=== PATIENT | female | born 1945 | race Caucasian/White ===

== ENCOUNTER 2022-10-10 13:18 | Inpatient (IN) ==
[2022-10-10] MEDS ORDERED: SODIUM CHLORIDE 0.9% 500 ML IV SCH (14:00)
[2022-10-10] MEDS ORDERED: SODIUM CHLORIDE 0.9% 1000ML 1,000 ML IV SCH (14:00)
[2022-10-10 14:31] LABS: Basophils # (auto) 0.07 K/uL (0-0.2); Basophils % (auto) 0.6 %; Eosinophils # (auto) 0.04 K/uL (0-0.50); Eosinophils % (auto) 0.3 %; Hematocrit (blood only) 47.4 % (34.1-44.9); Hemoglobin 16.1 g/dl (12.0-16.0); Immature Granulocytes # (auto) 0.03 K/uL (0.00-0.02); Immature Granulocytes % (auto) 0.2 %; Lymphocytes # (auto) 1.47 K/uL (1.2-3.4); Lymphocytes % (auto) 12.1 %; Mean Corpuscular Hemoglobin 30.3 pg (25.0-34.0); Mean Corpuscular Volume 89.1 fL (80.0-100.0); Mean Platelet Volume 9.6 fL (9.4-12.3); Monocytes % (auto) 5.8 %; Neutrophils # (auto) 9.79 K/uL (1.4-6.5); Platelet Count 238 K/uL (130-400); RDW Coefficient of Variation 13.2 % (11.5-14.5); RDW Standard Deviation 43.6 fL (36.4-46.3); Red Blood Count 5.32 M/uL (3.93-5.22)
[2022-10-10] MEDS ORDERED: LORazepam 1 MG/1 ML SYR IV STA ×2 (14:53→16:45)
[2022-10-10 15:14] LABS: Albumin Globulin Ratio 1.4 (0.9-2); Albumin Level 4.4 gm/dl (3.4-5.0); Bilirubin,Total 0.7 mg/dl (0.2-1.0); Calcium 9.4 mg/dl (8.5-10.1); Est GFR (African American) 82.3 ml/min; Globulin 3.1 gm/dl (2.5-4.0); Magnesium 2.2 mg/dl (1.7-2.4); Potassium 3.6 mmol/L (3.5-5.1); Total Protein 7.5 gm/dl (6.0-8.3)
[2022-10-10 15:17] LABS: Troponin I High Sensitivity 8.8 pg/ml (0-14)
--- NOTE | 2022-10-10 15:18 | CT Scan Report ---
HEAD CT NONCONTRAST CT DOSE: 537.48 mGy.cm HISTORY: confusion TECHNIQUE: Multiaxial CT images of the head were performed without the use of intravenous contrast. A utomated exposure control was utilized for this study. A dose lowering technique was utilized adheri ng to the principles of ALARA. Comparison: None. Findings: The paranasal sinuses and mastoid air cells are clear. The calvarium and skull base are int act. The ventricles and sulci are within normal limits. There is no mass, hematoma, midline shift, or acute infarct. Impression: No acute intracranial abnormality. ACT 112: Negative or not required by law. Electronically signed by: Emigdio Bledsoe M.D. 10/10/2022 3:16 PM
--- NOTE | 2022-10-10 15:26 | XRay Report ---
XR chest 1V portable HISTORY: confusion COMPARISON: None. FINDINGS: The lungs are clear. Cardiac silhouette is normal in size. No pleural effusions. No pneumot horax. Moderate hiatus hernia. Calcifications within the aortic knob. IMPRESSION: No acute process. ACT 112: Negative or not required by law. Electronically signed by: Emigdio Bledsoe M.D. 10/10/2022 3:24 PM
[2022-10-10 16:26] LABS: Appearance Urine Clear (Clear); Bacteria Urine Automated 2+ (Negative); Bilirubin Urine Negative (Negative); Blood Urine Negative (Negative); Cast Urine Automated 0 /lpf (0-5); Color Urine Yellow; Epithelial Cell Urine Auto 0-5 /lpf (0-5); Glucose Urine UA Negative (Negative); Ketones Urine Negative (Negative); Leukocyte Esterase Urine Negative (Negative); Nitrite Urine Positive (Negative); Protein Urine Negative (Negative); RBC Urine Automated 0-4 /hpf (0-4); Specific Gravity Urine 1.003 (1.000-1.030); Urobilinogen Urine Negative (Negative)
[2022-10-10] MEDS ORDERED: cefTRIAXone SODIUM 2,000 MG/70 ML BAG IV STA (16:35)
--- NOTE | 2022-10-10 16:50 | History & Physical Report ---
Date of Service October 10, 2022 Assessment & Plan (1) Altered mental state: Plan: Altered mental status Presumed dementia UTI could be contributing as well CT head:No acute process. No focal deficits on exam Urine toxicology requested Urinary tract infection Empirically started on Rocephin Blood, urine cultures obtained No signs of sepsis IV fluids Suicidal Ideation One-on-one precautions Psychiatry consulted Zyprexa as needed for agitation DVT Px: Lovenox SQ Code Status Full Code History of Present Illness Chief Complaint: Change in Mental Status Primary Care Provider: NO PCP Patient is a 77-year-old female with no significant known medical history presents with history of altered mental status. Patient is currently confused and unable to provide much history. Most of the history is obtained from ER staff, patient's significant other at bedside. Old records currently unavailable. Apparently, patient's significant other went to [employer] this morning and when he returned, he noted that patient left the house. When called, she informed that she was driving to her son's place in [place]. Patient's significant other informed that had a vehicle linux support engineer that he has been using to track her as she been having memory issues since last 1 and half years. State police were informed and patient was found walking on highway in [place]. Currently patient is oriented to person but otherwise disoriented. She has been having hallucinations and her mental status deteriorated especially over the past 5 days. She also was noted to have made statements suggestive of being suicidal. Per significant other, about 2 to 3 days ago patient stated " if I know how to use again, I would kill myself". Patient's son was contacted and he was unaware that her mother was traveling to visit him. Patient has been canceling her neurology appointments as per family, as she believes she has no issues. Blood work suggestive of UTI. Review of systems could not be obtained currently Allergies Allergy/AdvReac Type Severity Reaction Status Date / Time Unable to Assess Allergy Unverified 10/10/22 18:06 Home Medications Medication Instructions Recorded Confirmed Type Unobtainable 10/10/22 10/10/22 History Past Med/Surg History Social History Smoking Status: Unknown if ever smoked Preferred Language: Estonian Feels Safe at Home: Yes Review of Systems Review of Systems: Unobtainable due to cognitive status Physical Exam Physical Exam: Physical Exam: Vitals signs as noted above General Appearance:Moderately built and nourished, no apparent distress Head: normocephalic, Atraumatic Eyes: normal inspection, EOMI Neck: supple, Trachea midline Respiratory/Chest: Normal breath sounds, CTA, No accessory muscle use Cardiovascular: S1, S2, No murmur Abdomen/GI:Soft, Non tender, Bowel sounds present Extremities/Musculoskelatal:normal inspection, no edema Neurologic/Psych:AAOX1, grossly no focal neurological deficits, confused Skin: normal color, warm Results & Data Results & Data ([facility]) Vital Signs (Past 12 Hours) Vital Signs Temp Pulse Resp BP Pulse Ox O2 Del Method 10/10/22 14:36 88 18 98 Room Air 10/10/22 13:18 36.7 C 88 18 168/81 H 98 Room Air Laboratory Results Short CBC 10/10/22 Range/Units 14:18 WBC 12.10 H (4.8-10.8) K/ul Hgb 16.1 H (12.0-16.0) g/dl Hct 47.4 H (34.1-44.9) % Plt Count 238 (130-400) K/uL BMP 10/10/22 14:15 Sodium 139 Potassium 3.6 Chloride 104 Carbon Dioxide 28 BUN 17 Creatinine 0.81 Glucose 106 H Calcium 9.4 Liver Function 10/10/22 Range/Units 14:15 Total Bilirubin 0.7 (0.2-1.0) mg/dl AST 24 (13-39) U/L ALT 19 (7-52) U/L Alkaline Phosphatase 83 (34-104) U/L Albumin 4.4 (3.4-5.0) gm/dl Urine 10/10/22 Range/Units 16:03 Urine Color Yellow Urine Appearance Clear (Clear) Urine pH 7.0 (4.5-7.5) Ur Specific [place] 1.003 (1.000-1.030) Urine Protein Negative (Negative) Urine Glucose (UA) Negative (Negative) Diagnostic Findings CT Head:No acute intracranial abnormality. CXR:No acute process. ECG Additional Comments: EKG: Sinus rhythm with PVCs, QTC 460. Nonspecific ST-T wave changes
[2022-10-10] MEDS ORDERED: haloperidoL 1 MG TAB PO STA (17:18)
--- NOTE | 2022-10-10 18:17 | Emergency Department Note ---
Impression & Plan Altered mental status, Leukocytosis, Acute UTI (urinary tract infection), Suicidal ideation ED Provider Note INFORMANT: Patient, [id number] Didi, son Micah Johnson, significant other Jean Marie ED PROVIDER(S): Adam Orellana MD CHIEF COMPLAINT: Confusion PLAN: Disposition: Admitted Condition: Good Outpatient prescription management: none Referral: None MEDICAL DECISION MAKING: Patient presented because of confusion. She is clearly having difficulty with details and was difficult to redirect at times. The patient underwent an evaluation. She was oriented to person. She was given a dose of IV Ativan to help with the agitation. She made some statements that nursing documented about suicidality. She underwent head CT and chest x-ray which were unremarkable. There was a T wave version noted on V3 ECG however the patient denied any chest pain. There was a poor baseline and no prior for comparison. She had a mild leukocytosis. The patient did not understand her state and with her confusion and history I suspect that there is underlying dementia. The family and I discussed this and unfortunately she never had a formal evaluation as she would always cancel the appointments. Her urinalysis was obtained and did reveal findings concerning for infection. This could be explaining the exacerbation over the last several days however she is clearly not safe to be at home given her statements but also the leaving the house and [place]. The patient was given a second dose of Ativan and she also then received an oral dose of Haldol, 1 mg. Consultation was made with the [facility], Dr. Riley. He did evaluate the patient in the ER. He did ask for the delegate to evaluate the patient for the warrant. Case management did pursue this. Patient was admitted for further management. Triage Nursing notes reviewed and agree them. Vital Signs: reviewed and remarkable for no significant abnormalities Differential diagnosis: Infection, hypoglycemia, electrolyte abnormalities, overdose, toxicologic, cardiac sources, intracerebral event, neurologic, trauma, psychiatric, as well as other pathologies. Diagnostics interpreted by me: ECG: Twelve-lead ECG reveals a sinus rhythm with premature regular complexes at 84 bpm. There is a T wave inversion inferiorly but no obvious ST elevation. Poor baseline data present. Cardiac Monitoring: Patient would not comply Imaging studies: Head CT: A noncontrast CT scan of the head was performed and was negative for tumor, fracture, intracranial hemorrhage, or other acute pathology. Chest x-ray. Findings: A chest x-ray was performed and revealed no pneumothorax, effusion, infiltrate, pulmonary edema, free air under the diaphragm, or wide mediastinum. Impression: No acute disease. HPI: The patient is a 77year old female who presents to the Emergency Room by EMS due to confusion. The patient was [place] wandering [place] state police [place] [address]. Patient states she is from [place]. She was trying to go to her son's house. She stated that he has lived near her but he actually lives in [facility]. She also told nursing that she was leaving the house because people were stealing her money. Family notes that she is suspected of having dementia although her formal evaluations were missed because the patient would cancel appointments stating that she had no problems. Patient states he does not have any medical issues and family notes that she never goes to the doctor because she does not want to. The patient's significant other, car all notes that the patient has been getting more forgetful. She also has times of being very agitated and was packing up the entire house to send it to her sons in [place]. This week the patient's [id number] noted that she made statements about wanting to hurt her self. After arrival to the emergency department the patient did make statements about wanting to kill herself. Current pain is rated as 0/10. History is limited secondary to the patient's confusion. Pt denies LOC, headache, fevers, chills, visual changes, neck pain, chest pain, breathing difficulties, nausea, vomiting, abdominal pain, back pain, urinary symptoms, weakness, lymphadenopathy, rash, or other complaints. ROS: See above HPI for pertinent positives & negatives. Limited secondary to confusion PAST MEDICAL HISTORY:See Below , patient denies PAST SURGICAL HISTORY:See Below, gallbladder FAMILY HISTORY:See Below SOCIAL HISTORY:See Below, HOME MEDICATIONS:See Below ALLERGIES:See Below VITALS:See Below PHYSICAL EXAMINATION: GENERAL: Awake, alert, mildly agitated-appearing, in no distress HENT: Normocephalic, atraumatic. Oropharynx unremarkable. EYES: Normal conjunctiva. Sclera non-icteric. NECK: Inspection normal. Non-tender. Supple. No nuchal rigidity. FROM. No masses. RESPIRATORY: Clear to auscultation. No wheezes. No rales. Normal respiratory effort. CARDIAC: Normal rate. Normal rhythm. No murmurs. No rubs. Extremities warm and well perfused. Pulses equal. No JVD. GI: Soft, non-distended. No tenderness to palpation. No rebound or guarding. No masses. RECTAL: Deferred. MUSCULOSKELETAL: Atraumatic. Chest examination reveals no tenderness. The back i s symmetrical on inspection without obvious abnormality. There is no CVA tenderness to palpation. No joint edema. LOWER EXTREMITIES: Calves are equal size bilaterally and non-tender. No edema. No discoloration. NEURO: Confused sensorium. Oriented to person . no focal sensory or motor deficits noted. SKIN: No rash or jaundice noted. Adam Orellana MD Past Med/Surg History Social History Smoking Status: Unknown if ever smoked Preferred Language: Sami Feels Safe at Home: Yes Allergies Allergies Allergy/AdvReac Type Severity Reaction Status Date / Time Unable to Assess Allergy Unverified 10/10/22 18:06 Home Meds Home Medications Medication Instructions Recorded Confirmed Unobtainable 10/10/22 10/10/22 Results & Data (ED) Vital Signs Vital Signs - 24 hr 10/10/22 13:18 10/10/22 14:36 Temperature 36.7 C Temperature Source Temporal Artery Scan Pulse Rate 88 88 Respiratory Rate 18 18 Respiratory Effort / Characteristics Non-Labored Spontaneous Respiratory Depth Normal Blood Pressure 168/81 H Blood Pressure Mean 110 Blood Pressure Position Sitting Pulse Oximetry 98 98 Oxygen Delivery Method Room Air Room Air Sepsis Recent Fever Within 48 Hours No Sepsis New/Unexplained Change in Mental Status N/A Sepsis Action Taken by Nursing No Action Required Laboratory Data Result diagrams: 10/10/22 14:18 10/10/22 14:15 Lab Results 10/10/22 10/10/22 10/10/22 Range/Units 14:15 14:15 14:18 WBC 12.10 H (4.8-10.8) K/ul RBC 5.32 H (3.93-5.22) M/uL Hgb 16.1 H (12.0-16.0) g/dl Hct 47.4 H (34.1-44.9) % MCV 89.1 (80.0-100.0) fL MCH 30.3 (25.0-34.0) pg MCHC 34.0 (32.0-36.0) g/dL RDW Std Deviation 43.6 (36.4-46.3) fL RDW Coeff of Nader 13.2 (11.5-14.5) % Plt Count 238 (130-400) K/uL MPV 9.6 (9.4-12.3) fL Immature Gran % (Auto) 0.2 % Neut % (Auto) 81.0 % Lymph % (Auto) 12.1 % [place] % (Auto) 5.8 % Eos % (Auto) 0.3 % Baso % (Auto) 0.6 % Neut # (Auto) 9.79 H (1.4-6.5) K/uL Lymph # (Auto) 1.47 (1.2-3.4) K/uL [place] # (Auto) 0.70 (0.24-0.82) K/uL Eos # (Auto) 0.04 (0-0.50) K/uL Baso # (Auto) 0.07 (0-0.2) K/uL Immature Gran # (Auto) 0.03 H (0.00-0.02) K/uL Sodium 139 (136-145) mmol/L Potassium 3.6 (3.5-5.1) mmol/L Chloride 104 (98-107) mmol/L Carbon Dioxide 28 (21-32) mmol/L Anion Gap 7 (3-11) BUN 17 (6-23) mg/dl Creatinine 0.81 (0.6-1.2) mg/dl Est Cr Clr Drug Dosing 54.0 ml/min Est GFR ( Amer) 82.3 ml/min Est GFR (Non-Af Amer) 71.0 ml/min BUN/Creatinine Ratio 21.0 H (10-20) Glucose 106 H (70-99(Fasting)) mg/dl Calcium 9.4 (8.5-10.1) mg/dl Magnesium 2.2 (1.7-2.4) mg/dl Total Bilirubin 0.7 (0.2-1.0) mg/dl AST 24 (13-39) U/L ALT 19 (7-52) U/L Alkaline Phosphatase 83 (34-104) U/L Troponin I High Sens 8.8 (0-14) pg/ml Total Protein 7.5 (6.0-8.3) gm/dl Albumin 4.4 (3.4-5.0) gm/dl Globulin 3.1 (2.5-4.0) gm/dl Albumin/Globulin Ratio 1.4 (0.9-2) TSH (0.300-4.500) uIu/ml Urine Color Urine Appearance (Clear) Urine pH (4.5-7.5) Ur Specific [place] (1.000-1.030) Urine Protein (Negative) Urine Glucose (UA) (Negative) Urine Ketones (Negative) Urine Blood (Negative) Urine Nitrite (Negative) Urine Bilirubin (Negative) Urine Urobilinogen (Negative) Ur Leukocyte Esterase (Negative) Urine WBC (Auto) (0-5) /hpf Urine RBC (Auto) (0-4) /hpf U Hyaline Cast (Auto) (0-5) /lpf U Epithel Cells (Auto) (0-5) /lpf Urine Bacteria (Auto) (Negative) SARS-CoV-2, RNA, NAAT NEGATIVE (NEGATIVE) 10/10/22 10/10/22 Range/Units 14:18 16:03 WBC (4.8-10.8) K/ul RBC (3.93-5.22) M/uL Hgb (12.0-16.0) g/dl Hct (34.1-44.9) % MCV (80.0-100.0) fL MCH (25.0-34.0) pg MCHC (32.0-36.0) g/dL RDW Std Deviation (36.4-46.3) fL RDW Coeff of Nader (11.5-14.5) % Plt Count (130-400) K/uL MPV (9.4-12.3) fL Immature Gran % (Auto) % Neut % (Auto) % Lymph % (Auto) % [place] % (Auto) % Eos % (Auto) % Baso % (Auto) % Neut # (Auto) (1.4-6.5) K/uL Lymph # (Auto) (1.2-3.4) K/uL [place] # (Auto) (0.24-0.82) K/uL Eos # (Auto) (0-0.50) K/uL Baso # (Auto) (0-0.2) K/uL Immature Gran # (Auto) (0.00-0.02) K/uL Sodium (136-145) mmol/L Potassium (3.5-5.1) mmol/L Chloride (98-107) mmol/L Carbon Dioxide (21-32) mmol/L Anion Gap (3-11) BUN (6-23) mg/dl Creatinine (0.6-1.2) mg/dl Est Cr Clr Drug Dosing ml/min Est GFR ( Amer) ml/min Est GFR (Non-Af Amer) ml/min BUN/Creatinine Ratio (10-20) Glucose (70-99(Fasting)) mg/dl Calcium (8.5-10.1) mg/dl Magnesium (1.7-2.4) mg/dl Total Bilirubin (0.2-1.0) mg/dl AST (13-39) U/L ALT (7-52) U/L Alkaline Phosphatase (34-104) U/L Troponin I High Sens (0-14) pg/ml Total Protein (6.0-8.3) gm/dl Albumin (3.4-5.0) gm/dl Globulin (2.5-4.0) gm/dl Albumin/Globulin Ratio (0.9-2) TSH 2.279 (0.300-4.500) uIu/ml Urine Color Yellow Urine Appearance Clear (Clear) Urine pH 7.0 (4.5-7.5) Ur Specific [place] 1.003 (1.000-1.030) Urine Protein Negative (Negative) Urine Glucose (UA) Negative (Negative) Urine Ketones Negative (Negative) Urine Blood Negative (Negative) Urine Nitrite Positive A (Negative) Urine Bilirubin Negative (Negative) Urine Urobilinogen Negative (Negative) Ur Leukocyte Esterase Negative (Negative) Urine WBC (Auto) 1-5 (0-5) /hpf Urine RBC (Auto) 0-4 (0-4) /hpf U Hyaline Cast (Auto) 0 (0-5) /lpf U Epithel Cells (Auto) 0-5 (0-5) /lpf Urine Bacteria (Auto) 2+ H (Negative) SARS-CoV-2, RNA, NAAT (NEGATIVE) Administered Medications Sodium Chloride (Nss 1000ml) 1,000 mls @ 125 mls/hr IV .Q8H ARVIN Stop: 10/10/22 21:59 Last Admin: 10/10/22 14:20 Dose: 125 mls/hr Documented By: ED Discontinued Medications Haloperidol (Haloperidol 1 Mg Tab) 1 mg PO NOW STA Stop: 10/10/22 17:19 Last Admin: 10/10/22 17:32 Dose: 1 mg Documented By: MALIK Sodium Chloride (Nss) 500 mls @ 999 mls/hr IV .Q31M ARVIN Stop: 10/10/22 14:30 Last Admin: 10/10/22 14:20 Dose: 999 mls/hr Documented By: ED Ceftriaxone Sodium (Rocephin) 2,000 mg in 70 mls @ 140 mls/hr IV NOW STA Stop: 10/10/22 17:04 Last Admin: 10/10/22 17:01 Dose: 140 mls/hr Documented By: MALIK Lorazepam (Lorazepam 1 Mg/1 Ml Syr) 0.5 mg IV NOW STA; Protocol Stop: 10/10/22 14:54 Last Admin: 10/10/22 15:00 Dose: 0.5 mg Documented By: MALIK Lorazepam (Lorazepam 1 Mg/1 Ml Syr) 0.5 mg IV NOW STA; Protocol Stop: 10/10/22 16:46 Last Admin: 10/10/22 17:01 Dose: 0.5 mg Documented By: MALIK Imaging Data Radiologist's Impression: Chest X-Ray 10/10/22 13:53 XR chest 1V portable HISTORY: confusion COMPARISON: None. FINDINGS: The lungs are clear. Cardiac silhouette is normal in size. No pleural effusions. No pneumothorax. Moderate hiatus hernia. Calcifications within the aortic knob. IMPRESSION: No acute process. ACT 112: Negative or not required by law. Electronically signed by: Emigdio Bledsoe M.D. 10/10/2022 3:[address] 10/10/22 13:[address] DOSE: 537.48 mGy.cm HISTORY: confusion TECHNIQUE: Multiaxial CT images of the head were performed without the use of intravenous contrast. Automated exposure control was utilized for this study. A dose lowering technique was utilized adhering to the principles of ALARA. Comparison: None. Findings: The paranasal sinuses and mastoid air cells are clear. The calvarium and skull base are intact. The ventricles and sulci are within normal limits. There is no mass, hematoma, midline shift, or acute infarct. Impression: No acute intracranial abnormality. ACT 112: Negative or not required by law. Electronically signed by: Emigdio Bledsoe M.D. 10/10/2022 3:16 PM Discharge Plan Visit Data Chief Complaint: Confusion ED Provider: Adam Orellana Discharge Problem: Altered mental status, Leukocytosis, Acute UTI (urinary tract infection), Suicidal ideation Forms Stand Alone Forms: [facility] [employer] Prescriptions Prescriptions: No Action Unobtainable Referrals Referrals: PCP,NO [Primary Care Provider] -
[2022-10-10] MEDS ORDERED: ONDANSETRON INJ 2 MG/ML 2 ML VIAL IV PRN (19:35)
[2022-10-10] MEDS ORDERED: NSS + 20MEQ KCL 20 MEQ/1,000 ML BAG IV ONE (19:35)
[2022-10-10] MEDS ORDERED: POLYETHYLENE (MIRALAX) 17 GM PACK PO PRN (19:35)
[2022-10-10 20:28] LABS: Amphetamines+Metham, Urine Neg (Neg); Barbiturates, Urine Neg (Neg); Benzodiazepine, Urine Neg (Neg); Cocaine, Urine Neg (Neg); MDMA (Ecstacy), Urine Neg (Neg); Methadone, Urine Neg (Neg); Opiate, Urine Neg (Neg); Phencyclidine, Urine Neg (Neg)
[2022-10-11 07:50] LABS: Basophils # (auto) 0.08 K/uL (0-0.2); Basophils % (auto) 0.9 %; Eosinophils % (auto) 2.3 %; Hematocrit (blood only) 42.5 % (34.1-44.9); Hemoglobin 14.5 g/dl (12.0-16.0); Immature Granulocytes # (auto) 0.02 K/uL (0.00-0.02); Immature Granulocytes % (auto) 0.2 %; Lymphocytes # (auto) 2.09 K/uL (1.2-3.4); Lymphocytes % (auto) 24.1 %; Mean Corpuscular Hemoglobin 30.5 pg (25.0-34.0); Mean Corpuscular Hgb Conc 34.1 g/dL (32.0-36.0); Mean Corpuscular Volume 89.3 fL (80.0-100.0); Mean Platelet Volume 9.7 fL (9.4-12.3); Monocytes # (auto) 0.78 K/uL (0.24-0.82); Neutrophils # (auto) 5.52 K/uL (1.4-6.5); Neutrophils % (auto) 63.5 %; Platelet Count 220 K/uL (130-400); RDW Coefficient of Variation 13.2 % (11.5-14.5); RDW Standard Deviation 43.7 fL (36.4-46.3); Red Blood Count 4.76 M/uL (3.93-5.22); White Blood Count 8.69 K/ul (4.8-10.8)
[2022-10-11 08:19] LABS: Troponin I High Sensitivity 7.9 pg/ml (0-14)
[2022-10-11] MEDS: cefTRIAXone SODIUM 1,000 MG in DEXTROSE 5% 50 ML IV SCH (08:19)
[2022-10-11 08:24] LABS: BUN Creatinine Ratio 14.5 (10-20); Calcium 8.8 mg/dl (8.5-10.1); Creatinine Clr Calc Pharmacy 59.9 ml/min; Est GFR (African American) 88.9 ml/min; Est GFR (Non-African American) 76.7 ml/min; Magnesium 2.2 mg/dl (1.7-2.4); Potassium 4.1 mmol/L (3.5-5.1)
[2022-10-11] MEDS: ENOXAPARIN INJ 40 MG/0.4 ML SYR SQ SCH (08:24)
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
--- NOTE | 2022-10-11 15:49 | Hospitalist Progress Note ---
Date of Service October 11, 2022 Assessment & Plan (1) Altered mental state: Plan: Altered mental status/Delirium Presumed dementia Urine toxicology: Negative UTI could be contributing as well CT head:No acute process. No focal deficits on exam We will obtain B12, folate, MRI brain Appreciate psychiatry input Likely unsafe for driving upon discharge Urinary tract infection Blood cultures pending Urine culture growing gram-negative Empirically on Rocephin No signs of sepsis Received IV fluids Suicidal Ideation One-on-one precautions Appreciate Psychiatry Input Zyprexa as needed for agitation DVT Px: Lovenox SQ Code Status Full Code Admission and Anticipated Discharge Date Admission Date: October 10, 2022 Subjective Patient is seen and examined at bedside Pleasantly confused Offers no complaints Sitter at bedside Denies any chest pain, shortness of breath, dizziness, nausea, abdominal pain Review of Systems Review of Systems: All systems reviewed & are unremarkable except as noted in Subjective Physical Exam Physical Exam: Physical Exam: Vitals signs as noted above General Appearance:Moderately built and nourished, no apparent distress Head: normocephalic, Atraumatic Eyes: normal inspection, EOMI Neck: supple, Trachea midline Respiratory/Chest: Normal breath sounds, CTA, No accessory muscle use Cardiovascular: S1, S2, No murmur Abdomen/GI:Soft, Non tender, Bowel sounds present Extremities/Musculoskeletal:normal inspection, no edema Neurologic/Psych:AAOX1, grossly no focal neurological deficits, confused Skin: normal color, warm Results & Data Results & Data ([facility]) Vital Signs (Past 12 Hours) Vital Signs Temp Pulse Pulse Resp BP Pulse Ox O2 Del Method 10/11/22 12:17 36.6 C 62 18 143/86 H 98 Room Air 10/11/22 07:48 36.5 C 66 18 126/80 97 Room Air 10/11/22 07:24 61 Laboratory Results Short CBC 10/11/22 Range/Units 07:31 WBC 8.69 (4.8-10.8) K/ul Hgb 14.5 (12.0-16.0) g/dl Hct 42.5 (34.1-44.9) % Plt Count 220 (130-400) K/uL BMP 10/11/22 07:31 Sodium 139 Potassium 4.1 Chloride 109 H Carbon Dioxide 25 BUN 11 Creatinine 0.76 Glucose 89 Calcium 8.8 Urine 10/10/22 Range/Units 16:03 Urine Color Yellow Urine Appearance Clear (Clear) Urine pH 7.0 (4.5-7.5) Ur Specific [place] 1.003 (1.000-1.030) Urine Protein Negative (Negative) Urine Glucose (UA) Negative (Negative)
[2022-10-11] MEDS ORDERED: GADOBUTROL 65ML VIAL IV ONE (17:10)
--- NOTE | 2022-10-11 17:36 | Magnetic Resonance Report ---
MR brain wo/w con HISTORY: 77 years-old Female Altered mental status acutely altered mental status COMPARISON: Head CT 10/10/2022 TECHNIQUE: Multiplanar multisequence MRI of the brain was obtained both with and without the use of 6 cc Gadavist FINDINGS: Autopsy Assistant localizer images demonstrate no gross extracranial abnormality. There is a 4 mm focus of restri cted diffusion within the left frontal lobe centrum semiovale on image 17 series 4 with intermediate signal on the ADC map. No acute or subacute territorial infarct. No acute intracranial hemorrhage, mi dline shift, abnormal extra-axial collection, hydrocephalus or intracranial mass. Mild involutional c hanges with minimal T2/FLAIR hyperintense foci throughout the white matter. Probable small right fron vahid lobe developmental venous anomaly on image 17 series 9. No additional abnormal enhancement. Cerebral venous sinuses and major arterial flow voids appear patent. Mastoid air cells and paranasal sinuses are clear. Skull, orbits and soft tissues are unremarkable. IMPRESSION: 1. 4 mm focus of resected diffusion within the left frontal lobe centrum semiovale is suggestive of a n acute or subacute lacunar infarct. 2. Involutional changes with minimal chronic microvascular ischemic disease. ACT 112: Negative or not required by law. The above report was generated using voice recognition software. It may contain grammatical, syntax o r spelling errors. Electronically signed by: Sandro Vazquez M.D. 10/11/2022 5:33 PM
--- NOTE | 2022-10-12 06:09 | Electrocardiogram Report ---
Test Reason : Blood Pressure : / mmHG Vent. Rate : 084 BPM Atrial Rate : 084 BPM P-R Int : 144 ms QRS Dur : 092 ms QT Int : 390 ms P-R-T Axes : 029 -18 -24 degrees QTc Int : 460 ms Poor data quality, interpretation may be adversely affected Sinus rhythm with Premature ventricular complexes Nonspecific ST and T wave abnormality Abnormal ECG No previous ECGs available Confirmed by Dharmesh Renner ([id number]) on 10/12/2022 6:09:27 AM Referred By: REFERRED SELF Confirmed By:Dharmesh Renner
[2022-10-12] MEDS: cefTRIAXone SODIUM 1,000 MG in DEXTROSE 5% 50 ML IV SCH (08:27)
[2022-10-12] MEDS: ENOXAPARIN INJ 40 MG/0.4 ML SYR SQ SCH (08:28)
[2022-10-12 08:40] LABS: Basophils # (auto) 0.08 K/uL (0-0.2); Basophils % (auto) 1.1 %; Eosinophils # (auto) 0.17 K/uL (0-0.50); Eosinophils % (auto) 2.3 %; Hematocrit (blood only) 43.3 % (34.1-44.9); Immature Granulocytes # (auto) 0.01 K/uL (0.00-0.02); Immature Granulocytes % (auto) 0.1 %; Lymphocytes # (auto) 1.43 K/uL (1.2-3.4); Lymphocytes % (auto) 19.5 %; Mean Corpuscular Hemoglobin 30.3 pg (25.0-34.0); Mean Corpuscular Hgb Conc 34.6 g/dL (32.0-36.0); Mean Corpuscular Volume 87.5 fL (80.0-100.0); Monocytes # (auto) 0.63 K/uL (0.24-0.82); Monocytes % (auto) 8.6 %; Neutrophils # (auto) 5.02 K/uL (1.4-6.5); Neutrophils % (auto) 68.4 %; Platelet Count 227 K/uL (130-400); RDW Coefficient of Variation 13.2 % (11.5-14.5); RDW Standard Deviation 42.6 fL (36.4-46.3); Red Blood Count 4.95 M/uL (3.93-5.22); White Blood Count 7.34 K/ul (4.8-10.8)
[2022-10-12 09:03] LABS: BUN Creatinine Ratio 20.3 (10-20); Creatinine Clr Calc Pharmacy 57.6 ml/min; Est GFR (African American) 84.9 ml/min; Est GFR (Non-African American) 73.2 ml/min; Potassium 3.9 mmol/L (3.5-5.1)
[2022-10-12 09:27] LABS: Vitamin B12 442 pg/ml (180-914)
[2022-10-12] MEDS: ASPIRIN 81 MG ECTAB PO SCH ×2 (10:30→11:56)
[2022-10-12] MEDS: OLANZapine 10 MG/2.1 ML SDV IM PRN (11:31)
--- NOTE | 2022-10-12 13:27 | Ultrasound Report ---
ULTRASOUND OF THE CAROTID ARTERIES CLINICAL HISTORY: CVA COMPARISON: None available at the time of this dictation. TECHNIQUE: Real-time, grayscale, and color Doppler sonography of the carotid arteries is performed. I mages are reviewed in the transverse and longitudinal planes. FINDINGS: The carotid arteries are patent bilaterally and demonstrate antegrade flow. There is mild atheroscler otic plaque on the right and mild atherosclerotic plaque on the left. Normal doppler arterial wavefor ms are seen throughout. Velocity measurements are listed below. Common carotid peak systolic velocity (cm/sec): RIGHT: 103 LEFT: 109 ICA peak systolic velocity (cm/sec): RIGHT: 67 LEFT: 106 ICA/CC peak systolic ratio: RIGHT: 0.7 LEFT: 1.0 Antegrade flow was shown in the vertebral arteries. The external carotid arteries are patent. IMPRESSION: 1. There is no sonographic evidence of hemodynamically significant stenosis in the right or left car otid arterial system. 2. Antegrade flow is shown in the vertebral arteries. Society of Radiologists in Ultrasound consensus guidelines: Normal: ICA PSV is <125 cm/sec and no plaque or intimal thickening is visible sonographically additional criteria include ICA/CCA PSV ratio <2.0 and ICA EDV <40 cm/sec <50% ICA stenosis: ICA PSV is <125 cm/sec and plaque or intimal thickening is visible sonographically additional criteria include ICA/CCA PSV ratio <2.0 and ICA EDV <40 cm/sec 50-69% ICA stenosis: ICA PSV is 125-230 cm/sec and plaque is visible sonographically additional criteria include ICA/CCA PSV ratio of 2.0-4.0 and ICA EDV of 40-100 cm/sec ?70% ICA stenosis but less than near occlusion: ICA PSV is >230 cm/sec and visible plaque and luminal narrowing are seen at carlos-scale and color Dopp ler ultrasound (the higher the Doppler parameters lie above the threshold of 230 cm/sec, the greater the likelihood of severe disease) additional criteria include ICA/CCA PSV ratio >4 and ICA EDV >100 cm/sec ACT 112: Negative or not required by law. Electronically signed by: Daniel Donato M.D. 10/12/2022 1:26 PM
--- NOTE | 2022-10-12 14:12 | Psychiatric Progress Note ---
Date of Service October 12, 2022 Impression / Recommendations Impression 77 yo female with no prior psych history, >1 year cognitive decline, found lost in car and brought to [facility] for assessment. Currently gram neg. rods in urine, sensitivities pending but any degree of delirium is likely superimposed on major cognitive disorder. 10/12/22--intermittent agitation, evidence of ischemic stroke (frontal lobe lacunar--acute to subacute) and microvascular changes; hx is consistent with vascular dementia (1) Altered mental status: (2) Acute UTI (urinary tract infection): Plan 10/12/22: MSE continues to fluctuate, likely to benefit from standing dose atypical, liaison to obtain additional collateral from son. 10/11/22: she is not able to engage in a meaningful discussion of risks/benefits re: standing atypical for behavioral disturbance related to presumed dementia, does have Zyprexa 2.5 mg IM ordered which may be temporary if improves as UTI resolves. patient should not drive, defer to hospitalist service re: notification of [place] dept[place] of transportation. additional dementia w/u could include b12, folate, MRI brain. EEG likely low yield. patient is not able to leave the hospital AMA as currently being held/monitored on 302 pending medical clearance. Suicidal statements likely a factor of her delirium but clearly still requires 1-on-1 given elopement risk. Interval History Identifying Information Alayna is a 77 yo female from [facility]) who was admitted to hospitalist service for AMS/UTI. Reportedly on 302 warrant as patient was unwilling to stay for treatment initially. Chief Complaint "I'm getting out of here now!" yelling Review of Systems Notes patient is unable to complete Subjective Subjective Patient was seen & assessed and interval progress reviewed with nursing. Patient on the room phone yelling at partner after having attempted to run from 1 -on 1. Her personal items and phone were removed. She did not respond to verbal redirection by code carlos team and IM Zyprexa was given. Apparently earlier was able to cooperate with carotid dopplers and MRI. She was found less cooperative and wouldn't engage which had been different than baseline. Physical Exam Psychiatric uncooperative, loud, perseverative, oriented only to self, did not appear to be responding to internal stimuli. Vital Signs (Past 24 Hours) Last Vital Signs Temp 36.5 C 10/12/22 07:25 Pulse 54 L 10/12/22 07:41 Resp 18 10/11/22 16:19 BP 131/80 10/12/22 07:25 Pulse Ox 96 10/12/22 07:25 O2 Del Method 10/12/22 07:25 Results & Data ([facility]) Laboratory Results Laboratory Results - last 24 hr 10/12/22 10/12/22 10/12/22 08:02 08:02 08:02 WBC 7.34 RBC 4.95 Hgb 15.0 Hct 43.3 MCV 87.5 MCH 30.3 MCHC 34.6 RDW Std Deviation 42.6 RDW Coeff of Nader 13.2 Plt Count 227 MPV 10.0 Immature Gran % (Auto) 0.1 Neut % (Auto) 68.4 Lymph % (Auto) 19.5 [place] % (Auto) 8.6 Eos % (Auto) 2.3 Baso % (Auto) 1.1 Neut # (Auto) 5.02 Lymph # (Auto) 1.43 [place] # (Auto) 0.63 Eos # (Auto) 0.17 Baso # (Auto) 0.08 Immature Gran # (Auto) 0.01 Sodium 139 Potassium 3.9 Chloride 107 Carbon Dioxide 27 Anion Gap 5 BUN 16 Creatinine 0.79 Est Cr Clr Drug Dosing 57.6 Est GFR ( Amer) 84.9 Est GFR (Non-Af Amer) 73.2 BUN/Creatinine Ratio 20.3 H Glucose 89 Calcium 9.0 Vitamin B12 442 Folate > 22.30 Diagnostic Findings Brain MRI 10/11/22 16:14 MR brain wo/w con HISTORY: 77 years-old Female Altered mental status acutely altered mental status COMPARISON: Head CT 10/10/2022 TECHNIQUE: Multiplanar multisequence MRI of the brain was obtained both with and without the use of 6 cc Gadavist FINDINGS: Seafood Harvester localizer images demonstrate no gross extracranial abnormality. There is a 4 mm focus of restricted diffusion within the left frontal lobe centrum semiovale on image 17 series 4 with intermediate signal on the ADC map. No acute or subacute territorial infarct. No acute intracranial hemorrhage, midline shift, abnormal extra-axial collection, hydrocephalus or intracranial mass. Mild involutional changes with minimal T2/FLAIR hyperintense foci throughout the white matter. Probable small right frontal lobe developmental venous anomaly on image 17 series 9. No additional abnormal enhancement. Cerebral venous sinuses and major arterial flow voids appear patent. Mastoid air cells and paranasal sinuses are clear. Skull, orbits and soft tissues are unremarkable. IMPRESSION: 1. 4 mm focus of resected diffusion within the left frontal lobe centrum semiovale is suggestive of an acute or subacute lacunar infarct. 2. Involutional changes with minimal chronic microvascular ischemic disease. ACT 112: Negative or not required by law. The above report was generated using voice recognition software. It may contain grammatical, syntax or spelling errors. Electronically signed by: Sandro Vazqeuz M.D. 10/11/2022 5:33 PM Carotid Doppler Study 10/12/22 09:53 ULTRASOUND OF THE CAROTID ARTERIES CLINICAL HISTORY: CVA COMPARISON: None available at the time of this dictation. TECHNIQUE: Real-time, grayscale, and color Doppler sonography of the carotid arteries is performed. Images are reviewed in the transverse and longitudinal planes. FINDINGS: The carotid arteries are patent bilaterally and demonstrate antegrade flow. There is mild atherosclerotic plaque on the right and mild atherosclerotic plaque on the left. Normal doppler arterial waveforms are seen throughout. Velocity measurements are listed below. Common carotid peak systolic velocity (cm/sec): RIGHT: 103 LEFT: 109 ICA peak systolic velocity (cm/sec): RIGHT: 67 LEFT: 106 ICA/CC peak systolic ratio: RIGHT: 0.7 LEFT: 1.0 Antegrade flow was shown in the vertebral arteries. The external carotid arteries are patent. IMPRESSION: 1. There is no sonographic evidence of hemodynamically significant stenosis in the right or left carotid arterial system. 2. Antegrade flow is shown in the vertebral arteries. Society of Radiologists in Ultrasound consensus guidelines: Normal: ICA PSV is <125 cm/sec and no plaque or intimal thickening is visible sonographically additional criteria include ICA/CCA PSV ratio <2.0 and ICA EDV <40 cm/sec <50% ICA stenosis: ICA PSV is <125 cm/sec and plaque or intimal thickening is visible sonographically additional criteria include ICA/CCA PSV ratio <2.0 and ICA EDV <40 cm/sec 50-69% ICA stenosis: ICA PSV is 125-230 cm/sec and plaque is visible sonographically additional criteria include ICA/CCA PSV ratio of 2.0-4.0 and ICA EDV of 40-100 cm/sec ?70% ICA stenosis but less than near occlusion: ICA PSV is >230 cm/sec and visible plaque and luminal narrowing are seen at carlos-scale and color Doppler ultrasound (the higher the Doppler parameters lie above the threshold of 230 cm/sec, the greater the likelihood of severe disease) additional criteria include ICA/CCA PSV ratio >4 and ICA EDV >100 cm/sec ACT 112: Negative or not required by law. Electronically signed by: Daniel Donato M.D. 10/12/2022 1:26 PM Current Inpatient Medications Current Inpatient Medications: Current Inpatient Medications Acetaminophen (Acetaminophen 325 Mg Tab) 650 mg PO Q4H PRN PRN Reason: pain/fever Stop: 11/09/22 19:34 Aspirin (Aspirin 81 Mg Ectab) 81 mg PO DAILY ARVIN Stop: 11/11/22 09:59 Last Admin: 10/12/22 11:56 Dose: 81 mg Enoxaparin Sodium (Enoxaparin Inj 40 Mg/0.4 Ml Syr) 40 mg SQ QAM ARVIN Stop: 11/10/22 08:59 Last Admin: 10/12/22 08:28 Dose: 40 mg Ceftriaxone Sodium 1,000 mg/ (Dextrose) 60 mls @ 100 mls/hr IV DAILY ARVIN; Protocol Stop: 10/16/22 08:59 Last Infusion: 10/12/22 09:19 Dose: Infused Olanzapine (Olanzapine 10 Mg/2.1 Ml Sdv) 2.5 mg IM Q8 PRN PRN Reason: Agitation Stop: 11/09/22 19:34 Last Admin: 10/12/22 11:31 Dose: 2.5 mg Ondansetron HCl (Ondansetron Inj 2 Mg/Ml 2 Ml Vial) 4 mg IV Q6H PRN PRN Reason: Nausea Stop: 11/09/22 19:34 Polyethylene Glycol (Polyethylene (Miralax) 17 Gm Pack) 17 gm PO DAILY PRN PRN Reason: Constipation Stop: 11/09/22 19:34
--- NOTE | 2022-10-12 15:13 | Neurology Consultation ---
Date of Consultation October 12, 2022 Assessment & Plan (1) CVA (cerebral vascular accident): Impression: The patient was admitted because of confusion and suicidal ideation. Brain MRI showed small, subcortical, left frontal ischemic lesion which is an incidental finding and does not explain the patient's current mental status change. Echocardiogram was unremarkable. Carotid ultrasound did not show atherosclerotic changes or critical stenosis. Blood pressure control has been well. The patient was started on aspirin based on brain MRI findings. Recommendations: I agree with keeping the patient on aspirin 81 mg daily. Lipid panel. Goal LDL level is lower than 70. Treatment on statin as needed. Goal blood pressure is below 130/80. No indication for permissive hypertension. Follow-up with neurology clinic. I will contact with [facility] neurology group to set up a follow-up appointment. (2) Altered mental status: Impression: According to family, the patient has been having gradually worsening cognitive dysfunction for last 2 years. The patient refused to be seen by neurology clinic before. She has poor insight. Recent rapid decline of cognitive functioning was likely secondary to superimposed urinary tract infection. Based on history, she might have neurodegenerative dementia. Recommendations: Based on history, be considered dementing disorder is likely and I do recommend starting her on Aricept 5 mg at bedtime for a month, then increasing dosage to 10 mg at bedtime. More detailed evaluation at neurology clinic for dementing disorder. (3) Acute UTI (urinary tract infection): Impression: The patient was diagnosed with urinary tract infection, which has been treated on antibiotic. (4) Suicidal ideation: Impression: She denies any suicidal ideation at this time, but apparently, this was reported on admission. Recommendations: Psychiatry is on board. Plan Thank you for the consultation. History of Present Illness Reason for Consultation: AMS, CVA Requesting Physician: Chepe Riley MD Attending Physician: Chepe Riley MD History of Present Illness The patient is a 77-year-old female, who was found by state police, walking on the highway confused and disoriented. According to significant other, the patient left the house 2 days ago. When he called, she informed that she was driving to her son's place in [place]. Apparently, the patient was having declining mental status with hallucinations, for last 1 week. In emergency department, the patient was having suicidal ideation, and was admitted to hospital for further evaluation. Urinalysis showed urinary tract infection and she was started on antibiotic treatment. According to other family members, the patient has been having gradually worsening cognitive functioning for last 2 years. She was scheduled to see a neurologist few times in the past, but each time, she refused to go doctor's office. Psychiatry was consulted, and she was started on Zyprexa low-dose. Initial agitation and irritability has been better since admission, however, she still has delusions, and talks about her significant other in negative way. She does not think that she has any problems including memory disturbance. Based on psychiatry recommendations, the patient had work-up including vitamin B12, folic acid, TSH, and brain MRI which were all unremarkable other than MRI finding of small, left frontal subcortical probably subacute ischemic lesion. MRI finding was incidental, and did not explain the patient's cognitive dysfunction. EKG showed sinus rhythm. The patient has no history of cerebrovascular accident or stroke symptoms. She has no history of seizure or seizure-like activities either. I have reviewed the patient's chart including imaging studies and visualized them personally. Allergies Allergy/AdvReac Type Severity Reaction Status Date / Time Unable to Assess Allergy Unverified 10/10/22 18:06 Home Medications Medication Instructions Recorded Confirmed Type Unobtainable 10/10/22 10/10/22 History Patient History Medical History Leukocytosis Social History Smoking Status: Never smoker Second Hand Exposure: No; Do You Dip or Chew Tobacco: No; Hx Alcohol Use: No Hx Substance Use: No Preferred Language: Chinese Communication Ability: dementia Chart Snatcher Required: No Beliefs That Will Affect Care: None Current Living Situation: Significant Other Current Living Situation Comment: significant other Other Information That Helps Us Care for You: No Feels Safe at Home: Declines to Answer Assistive Devices: Glasses Review of Systems Review of Systems: All systems reviewed & are unremarkable except as noted in HPI & below Physical Exam Physical Exam: General Examination: Constitutional: Well developed person in no acute distress, somewhat delusional and irritable. HEENT: Normal exam with inspection. CV: Hearth rhythm is regular. Neck: Supple, no carotid bruits. Lungs: Non-labored and comfortable breathing. Abdomen: Soft, non-tender, non-distended. Skin: No rash or ecchymosis. Extremities: No edema or cyanosis NEUROLOGICAL EXAMINATION: Mental Status: Alert and oriented to place, person, year and month. She does not remember the name of current and recent presidents. She reports that she born in 1964. Fixated thoughts about unclear issues with her significant other. Cranial Nerves: II-XII are intact. No nystagmus. Funduscopy: Normal looking optic discs. Motor: 5/5 in all extremities without asymmetry. Tone: Normal without spasticity or rigidity. Sensory: Intact to all sensory modalities. Coordination: No dysmetria with FTN testing. DTRs: 2+ all. No Babinski. Speech: Fluent. Comprehension is intact. Gait: Normal. No ataxia or abnormal walking pattern. Musculoskeletal: Normal muscle bulk, no atrophy. Results & Data ([facility]) Vital Signs (Past 12 Hours) Vital Signs Temp Pulse Pulse Pulse Resp BP Pulse Ox 10/12/22 13:50 36.6 C 99 H 18 110/69 96 10/12/22 07:41 54 L 10/12/22 07:25 36.5 C 53 L 131/80 96 O2 Del Method 10/12/22 13:50 Room Air 10/12/22 07:41 10/12/22 07:25 Room Air Laboratory Results Laboratory Results - last 24 hr 10/12/22 10/12/22 10/12/22 08:02 08:02 08:02 WBC 7.34 RBC 4.95 Hgb 15.0 Hct 43.3 MCV 87.5 MCH 30.3 MCHC 34.6 RDW Std Deviation 42.6 RDW Coeff of Nader 13.2 Plt Count 227 MPV 10.0 Immature Gran % (Auto) 0.1 Neut % (Auto) 68.4 Lymph % (Auto) 19.5 [place] % (Auto) 8.6 Eos % (Auto) 2.3 Baso % (Auto) 1.1 Neut # (Auto) 5.02 Lymph # (Auto) 1.43 [place] # (Auto) 0.63 Eos # (Auto) 0.17 Baso # (Auto) 0.08 Immature Gran # (Auto) 0.01 Sodium 139 Potassium 3.9 Chloride 107 Carbon Dioxide 27 Anion Gap 5 BUN 16 Creatinine 0.79 Est Cr Clr Drug Dosing 57.6 Est GFR ( Amer) 84.9 Est GFR (Non-Af Amer) 73.2 BUN/Creatinine Ratio 20.3 H Glucose 89 Calcium 9.0 Vitamin B12 442 Folate > 22.30 Diagnostic Findings Chest X-Ray 10/10/22 13:53 XR chest 1V portable HISTORY: confusion COMPARISON: None. FINDINGS: The lungs are clear. Cardiac silhouette is normal in size. No pleural effusions. No pneumothorax. Moderate hiatus hernia. Calcifications within the aortic knob. IMPRESSION: No acute process. ACT 112: Negative or not required by law. Electronically signed by: Emigdio Bledsoe M.D. 10/10/2022 3:[address] 10/10/22 13:[address] DOSE: 537.48 mGy.cm HISTORY: confusion TECHNIQUE: Multiaxial CT images of the head were performed without the use of intravenous contrast. Automated exposure control was utilized for this study. A dose lowering technique was utilized adhering to the principles of ALARA. Comparison: None. Findings: The paranasal sinuses and mastoid air cells are clear. The calvarium and skull base are intact. The ventricles and sulci are within normal limits. There is no mass, hematoma, midline shift, or acute infarct. Impression: No acute intracranial abnormality. ACT 112: Negative or not required by law. Electronically signed by: Emigdio Bledsoe M.D. 10/10/2022 3:16 PM Brain MRI 10/11/22 16:14 MR brain wo/w con HISTORY: 77 years-old Female Altered mental status acutely altered mental status COMPARISON: Head CT 10/10/2022 TECHNIQUE: Multiplanar multisequence MRI of the brain was obtained both with and without the use of 6 cc Gadavist FINDINGS: Chemistry Research Assistant localizer images demonstrate no gross extracranial abnormality. There is a 4 mm focus of restricted diffusion within the left frontal lobe centrum semiovale on image 17 series 4 with intermediate signal on the ADC map. No acute or subacute territorial infarct. No acute intracranial hemorrhage, midline shift, abnormal extra-axial collection, hydrocephalus or intracranial mass. Mild involutional changes with minimal T2/FLAIR hyperintense foci throughout the white matter. Probable small right frontal lobe developmental venous anomaly on image 17 series 9. No additional abnormal enhancement. Cerebral venous sinuses and major arterial flow voids appear patent. Mastoid air cells and paranasal sinuses are clear. Skull, orbits and soft tissues are unremarkable. IMPRESSION: 1. 4 mm focus of resected diffusion within the left frontal lobe centrum semiovale is suggestive of an acute or subacute lacunar infarct. 2. Involutional changes with minimal chronic microvascular ischemic disease. ACT 112: Negative or not required by law. The above report was generated using voice recognition software. It may contain grammatical, syntax or spelling errors. Electronically signed by: Sandro Vazquez M.D. 10/11/2022 5:33 PM Carotid Doppler Study 10/12/22 09:53 ULTRASOUND OF THE CAROTID ARTERIES CLINICAL HISTORY: CVA COMPARISON: None available at the time of this dictation. TECHNIQUE: Real-time, grayscale, and color Doppler sonography of the carotid arteries is performed. Images are reviewed in the transverse and longitudinal planes. FINDINGS: The carotid arteries are patent bilaterally and demonstrate antegrade flow. There is mild atherosclerotic plaque on the right and mild atherosclerotic plaque on the left. Normal doppler arterial waveforms are seen throughout. Velocity measurements are listed below. Common carotid peak systolic velocity (cm/sec): RIGHT: 103 LEFT: 109 ICA peak systolic velocity (cm/sec): RIGHT: 67 LEFT: 106 ICA/CC peak systolic ratio: RIGHT: 0.7 LEFT: 1.0 Antegrade flow was shown in the vertebral arteries. The external carotid arteries are patent. IMPRESSION: 1. There is no sonographic evidence of hemodynamically significant stenosis in the right or left carotid arterial system. 2. Antegrade flow is shown in the vertebral arteries. Society of Radiologists in Ultrasound consensus guidelines: Normal: ICA PSV is <125 cm/sec and no plaque or intimal thickening is visible sonographically additional criteria include ICA/CCA PSV ratio <2.0 and ICA EDV <40 cm/sec <50% ICA stenosis: ICA PSV is <125 cm/sec and plaque or intimal thickening is visible sonographically additional criteria include ICA/CCA PSV ratio <2.0 and ICA EDV <40 cm/sec 50-69% ICA stenosis: ICA PSV is 125-230 cm/sec and plaque is visible sonographically additional criteria include ICA/CCA PSV ratio of 2.0-4.0 and ICA EDV of 40-100 cm/sec ?70% ICA stenosis but less than near occlusion: ICA PSV is >230 cm/sec and visible plaque and luminal narrowing are seen at carlos-scale and color Doppler ultrasound (the higher the Doppler parameters lie above the threshold of 230 cm/sec, the greater the likelihood of severe disease) additional criteria include ICA/CCA PSV ratio >4 and ICA EDV >100 cm/sec ACT 112: Negative or not required by law. Electronically signed by: Daniel Donato M.D. 10/12/2022 1:26 PM ECHO--unremarkable
--- NOTE | 2022-10-12 15:14 | Hospitalist Progress Note ---
Date of Service October 12, 2022 Assessment & Plan (1) Altered mental state: Plan: Altered mental status/Delirium Acute metabolic encephalopathy:UTI, CVA Presumed dementia Urine toxicology: Negative Brain imaging as below Normal B12, folate Appreciate psychiatry input Likely unsafe for driving upon discharge Zyprexa PRN Acute/Subacute CVA-POA --MRI Brain:4 mm focus of resected diffusion within the left frontal lobe centrum semiovale is suggestive of an acute or subacute lacunar infarct. Involutional changes with minimal chronic microvascular ischemic disease. --Carotid USD:There is no sonographic evidence of hemodynamically significant stenosis in the right or left carotid arterial system. Antegrade flow is shown in the vertebral arteries. --ECHO pending --Lipid Panel pending Start aspirin 81 mg daily Speech and swallow eval Neuro checks, Neurology consult PT/OT Urinary tract infection Blood cultures pending Urine culture growing E coli Continue Rocephin No signs of sepsis Received IV fluids Suicidal Ideation One-on-one precautions Appreciate Psychiatry Input Zyprexa as needed for agitation DVT Px: Lovenox SQ Code Status Full Code Family Contact Didi (Patient's daughter in law) [phone] Admission and Anticipated Discharge Date Admission Date: October 10, 2022 Subjective Patient is seen and examined at bedside No distress on exam Noted to be Agitated and combative by RN Reluctant to provide any history and ignores on questioning during my encounter Updated patient's significant other and family over the phone Review of Systems Review of Systems: Unobtainable due to cognitive status Physical Exam Physical Exam: Physical Exam: Vitals signs as noted above General Appearance:Moderately built and nourished, no apparent distress Head: normocephalic, Atraumatic Eyes: normal inspection, EOMI Neck: supple, Trachea midline Respiratory/Chest: Normal breath sounds, CTA, No accessory muscle use Cardiovascular: S1, S2, No murmur Abdomen/GI:Soft, Non tender, Bowel sounds present Extremities/Musculoskeletal:normal inspection, no edema Neurologic/Psych:AA, grossly no focal neurological deficits, confused Skin: normal color, warm Results & Data Results & Data ([facility]) Vital Signs (Past 12 Hours) Vital Signs Temp Pulse Pulse Pulse Resp BP Pulse Ox 10/12/22 13:50 36.6 C 99 H 18 110/69 96 10/12/22 07:41 54 L 10/12/22 07:25 36.5 C 53 L 131/80 96 O2 Del Method 10/12/22 13:50 Room Air 10/12/22 07:41 10/12/22 07:25 Room Air Laboratory Results Short CBC 10/12/22 Range/Units 08:02 WBC 7.34 (4.8-10.8) K/ul Hgb 15.0 (12.0-16.0) g/dl Hct 43.3 (34.1-44.9) % Plt Count 227 (130-400) K/uL BMP 10/12/22 08:02 Sodium 139 Potassium 3.9 Chloride 107 Carbon Dioxide 27 BUN 16 Creatinine 0.79 Glucose 89 Calcium 9.0
[2022-10-12] MEDS: DONEPEZIL HCL 5 MG TAB PO SCH (20:50)
--- NOTE | 2022-10-13 06:25 | Electrocardiogram Report ---
Test Reason : Blood Pressure : / mmHG Vent. Rate : 064 BPM Atrial Rate : 064 BPM P-R Int : 146 ms QRS Dur : 088 ms QT Int : 440 ms P-R-T Axes : 062 014 042 degrees QTc Int : 453 ms Normal sinus rhythm Normal ECG When compared with ECG of 10-OCT-2022 14:17, Premature ventricular complexes are no longer Present T wave inversion no longer evident in Inferior leads Confirmed by Dharmesh Renner ([id number]) on 10/13/2022 6:24:43 AM Referred By: REFERRED SELF Confirmed By:Dharmesh Renner
[2022-10-13 07:38] LABS: Chol HDL Ratio 4.3 (0-5)
[2022-10-13 07:39] LABS: Estimated Average Glucose 123 mg/dl; Hemoglobin A1C 5.9 % (4.5-5.6)
[2022-10-13] MEDS: ENOXAPARIN INJ 40 MG/0.4 ML SYR SQ SCH (08:06)
[2022-10-13] MEDS: ASPIRIN 81 MG ECTAB PO SCH (08:06)
[2022-10-13] MEDS: cefTRIAXone SODIUM 1,000 MG in DEXTROSE 5% 50 ML IV SCH (08:12)
[2022-10-13] MEDS ORDERED: DONEPEZIL HCL 5 MG TAB PO SCH ×2 (09:00→21:00)
[2022-10-13] MEDS: OLANZapine 10 MG/2.1 ML SDV IM PRN ×2 (10:37→22:43)
--- NOTE | 2022-10-13 12:38 | Communication Note ---
Date of Service: October 13, 2022 patient more redirectible since code breanna yesterday but refuses assessments at times and continues to lack insight into her condition. Refused Aricept. Neurology consult reviewed. Received Zyprexa 2.5 mg IM again today as perseverates on leaving and not yet medically cleared. Hospitalist service could consider adding a PO dose of prn Zyprexa or regularly scheduled at HS but I doubt she would take it.
[2022-10-13] MEDS ORDERED: OLANZapine 10 MG/2.1 ML SDV IM STA (12:55)
[2022-10-13] MEDS ORDERED: HALOPERIDOL LACTATE 5 MG/ML 1 ML VIAL IM STA (15:22)
[2022-10-13] MEDS ORDERED: HALOPERIDOL LACTATE 5 MG/ML 1 ML VIAL ONE (15:25)
[2022-10-13] MEDS ORDERED: OLANZAPINE 2.5 MG TAB PO PRN (15:37)
--- NOTE | 2022-10-13 15:37 | Hospitalist Progress Note ---
Date of Service October 13, 2022 Assessment & Plan (1) Altered mental state: Plan: Altered mental status/Delirium Acute metabolic encephalopathy:UTI, CVA Presumed dementia Urine toxicology: Negative Brain imaging as below Normal B12, folate Appreciate psychiatry input and recommendation Likely unsafe for driving upon discharge Zyprexa PRN Remains agitated and has been trying to get out of the room Requiring one-to-one sitter We will continue Zyprexa as per psychiatric recommendation Acute/Subacute CVA-POA --MRI Brain:4 mm focus of resected diffusion within the left frontal lobe centrum semiovale is suggestive of an acute or subacute lacunar infarct. Involutional changes with minimal chronic microvascular ischemic disease. --Carotid USD:There is no sonographic evidence of hemodynamically significant stenosis in the right or left carotid arterial system. Antegrade flow is shown in the vertebral arteries. --ECHO -qualitative EF 55% on limited transthoracic view, borderline concentric LVH and regional wall motion abnormalities cannot be excluded due to limited visualization --Lipid Panel-triglyceride on 65, cholesterol 196, LDL 117 and HDL 46 Start aspirin 81 mg daily Speech and swallow eval-she passed her dysphagia screen Neuro checks, Neurology consult-appreciate input and recommendation PT/OT Urinary tract infection Blood cultures pending Urine culture growing E coli -pansensitive Continue Rocephin No signs of sepsis Received IV fluids Suicidal Ideation One-on-one precautions Appreciate Psychiatry Input Zyprexa as needed for agitation Has been agitated with a fall this afternoon Required 1 dose of IM Haldol We will continue with Zyprexa as for recommendation of the psychiatrist DVT Px: Lovenox SQ Code Status Full Code Family Contact Didi (Patient's daughter in law) [phone] Admission and Anticipated Discharge Date Admission Date: October 10, 2022 Subjective 10/13/2022 The patient was seen and examined in medical telemetry unit She has been very anxious, agitated and wandering around the room Trying to get out of the room Remains under one-to-one sitter Review of Systems Review of Systems: Unobtainable due to cognitive status Physical Exam Physical Exam: Sitting at the edge of the bed without any acute distress Constitutional: well developed and well nourished; not ill appearing Eyes: PERRL, conjunctivae normal, anicteric sclerae ENMT: external ear and nose normal, oropharynx normal Neck: trachea midline, no thyromegaly Respiratory: no respiratory distress Auscultation: lungs clear to auscultation bilaterally Cardiovascular: Rate/Rhythm: regular rate and regular rhythm; not tachycardic Heart Sounds: normal S1 and normal S2; no murmur Extremities: no edema Gastrointestinal (Abdomen): Inspection/Auscultation: abdomen not distended Percussion/Palpation: abdomen soft; abdomen nontender Musculoskeletal: No acute arthritis in any joint Neurologic: Alert and awake. Totally confused. Not aggressive during examination. Has been wandering around the room. Was agreeable to take the medications Psychiatric: Mood: + anxious mood Insight: + poor insight Lymphatic: no cervical or axillary lymphadenopathy Results & Data Results & Data ([facility]) Vital Signs (Past 12 Hours) Vital Signs Temp Pulse Resp BP Pulse Ox O2 Del Method 10/13/22 13:00 Room Air 10/13/22 09:00 Room Air 10/13/22 08:10 36.7 C 61 20 109/70 97 Room Air Medications Administered Current Inpatient Medications Acetaminophen (Acetaminophen 325 Mg Tab) 650 mg PO Q4H PRN PRN Reason: pain/fever Stop: 11/09/22 19:34 Aspirin (Aspirin 81 Mg Ectab) 81 mg PO DAILY ARVIN Stop: 11/11/22 09:59 Last Admin: 10/13/22 08:06 Dose: 81 mg Donepezil HCl (Donepezil Hcl 5 Mg Tab) 5 mg PO HS ARVIN Stop: 11/11/22 20:59 Last Admin: 10/12/22 20:50 Dose: Not Given Enoxaparin Sodium (Enoxaparin Inj 40 Mg/0.4 Ml Syr) 40 mg SQ QAM ARVIN Stop: 11/10/22 08:59 Last Admin: 10/13/22 08:06 Dose: 40 mg Ceftriaxone Sodium 1,000 mg/ (Dextrose) 60 mls @ 100 mls/hr IV DAILY ARVIN; Protocol Stop: 10/16/22 08:59 Last Infusion: 10/13/22 08:48 Dose: Infused Olanzapine (Olanzapine 10 Mg/2.1 Ml Sdv) 2.5 mg IM Q8 PRN PRN Reason: Agitation Stop: 11/09/22 19:34 Last Admin: 10/13/22 10:37 Dose: 2.5 mg Olanzapine (Olanzapine 5 Mg Tablet) 5 mg PO HS ARVIN Stop: 11/12/22 20:59 Ondansetron HCl (Ondansetron Inj 2 Mg/Ml 2 Ml Vial) 4 mg IV Q6H PRN PRN Reason: Nausea Stop: 11/09/22 19:34 Polyethylene Glycol (Polyethylene (Miralax) 17 Gm Pack) 17 gm PO DAILY PRN PRN Reason: Constipation Stop: 11/09/22 19:34
[2022-10-13] MEDS: OLANZapine 5 MG TABLET PO SCH (20:53)
[2022-10-13] MEDS: DONEPEZIL HCL 5 MG TAB PO SCH (20:54)
[2022-10-13] MEDS: ACETAMINOPHEN 325 MG TAB PO PRN (21:13)
[2022-10-14] MEDS: ACETAMINOPHEN 325 MG TAB PO PRN (06:22)
[2022-10-14] MEDS: cefTRIAXone SODIUM 1,000 MG in DEXTROSE 5% 50 ML IV SCH (08:03)
[2022-10-14] MEDS: ASPIRIN 81 MG ECTAB PO SCH (08:03)
[2022-10-14] MEDS: ENOXAPARIN INJ 40 MG/0.4 ML SYR SQ SCH (08:03)
[2022-10-14] MEDS ORDERED: LORazepam 0.25 MG in SYRINGE 0 ML IV STA (10:06)
--- NOTE | 2022-10-14 10:51 | CT Scan Report ---
CT SCAN OF THE BRAIN WITHOUT IV CONTRAST CLINICAL HISTORY: Change in mental status. COMPARISON STUDY: CT of the brain dated 10/10/2022. MRI of the brain dated 10/11/2022. TECHNIQUE: Unenhanced axial CT scan of the brain is performed from the vertex to the skull base. A do se lowering technique was utilized adhering to the principles of ALARA. CT DOSE: 537.48 mGy.cm FINDINGS: Brain parenchyma: There is age-related involutional change noting mild subcortical and periventricula r microangiopathic disease. There is no hemorrhage, mass effect, or evidence of acute territorial isc hemia by CT criteria. Watson-white matter differentiation is preserved. No extra-axial fluid collection is seen. Ventricles, sulci, cisterns: Prominent secondary to involutional change. Intracranial vasculature: There is atherosclerotic calcification of the cavernous carotid arteries. Calvarium: Unremarkable. Soft tissues: There is left periorbital soft tissue contusion. Sinuses and mastoids: The visualized paranasal sinuses are clear. The mastoid air cells are well pneu matized. Orbits: The bony orbits are grossly intact. IMPRESSION: There is no hemorrhage, mass effect, or evidence of acute territorial ischemia by CT crit eria. The tiny focus of ischemia in the left frontal lobe seen by MRI is not visualized by CT. ACT 112: Negative or not required by law. Electronically signed by: Ricardo Sutton M.D. 10/14/2022 10:49 AM
[2022-10-14] MEDS: OLANZapine 10 MG/2.1 ML SDV IM PRN (11:33)
--- NOTE | 2022-10-14 11:55 | Hospitalist Progress Note ---
Date of Service October 14, 2022 Assessment & Plan (1) Altered mental state: Plan: Altered mental status/Delirium -off and on Acute metabolic encephalopathy:UTI, CVA Presumed dementia Urine toxicology: Negative Brain imaging as below Normal B12, folate Appreciate psychiatry input and recommendation Likely unsafe for driving upon discharge Zyprexa PRN Remains agitated and has been trying to get out of the room Requiring one-to-one sitter We will continue Zyprexa as per psychiatric recommendation Remained calm and quiet this morning during examination but later on became very aggressive and combative CT of the head was ordered but was not performed due to combativeness-doubt any intracranial events with the trauma Will contact to the psychiatric service for further recommendation Acute/Subacute CVA-POA --MRI Brain:4 mm focus of resected diffusion within the left frontal lobe centrum semiovale is suggestive of an acute or subacute lacunar infarct. Involutional changes with minimal chronic microvascular ischemic disease. --Carotid USD:There is no sonographic evidence of hemodynamically significant stenosis in the right or left carotid arterial system. Antegrade flow is shown in the vertebral arteries. --ECHO -qualitative EF 55% on limited transthoracic view, borderline concentric LVH and regional wall motion abnormalities cannot be excluded due to limited visualization --Lipid Panel-triglyceride on 65, cholesterol 196, LDL 117 and HDL 46 Start aspirin 81 mg daily Speech and swallow eval-she passed her dysphagia screen Neuro checks, Neurology consult-appreciate input and recommendation PT/OT Urinary tract infection Blood cultures pending Urine culture growing E coli -pansensitive Continue Rocephin No signs of sepsis Received IV fluids Suicidal Ideation One-on-one precautions Appreciate Psychiatry Input Zyprexa as needed for agitation Has been agitated with a fall this afternoon Required 1 dose of IM Haldol We will continue with Zyprexa as for recommendation of the psychiatrist Requiring one-to-one sitter and at times the patient is very restless and combative Pharmacologic restraint has not been working and has been requiring physical restraint as well DVT Px: Lovenox SQ Code Status Full Code Family Contact Didi (Patient's daughter in law) [phone] Admission and Anticipated Discharge Date Admission Date: October 10, 2022 Subjective 10/13/2022 The patient was seen and examined in medical telemetry unit She has been very anxious, agitated and wandering around the room Trying to get out of the room Remains under one-to-one sitter 10/14/2022 The patient was seen and examined in medical telemetry unit Yesterday she banged her forehead on the door x2 and has black eye on the left side She was reasonably conversant this morning during my examination and denies any significant symptoms Later on she was noted to be very agitated and combative and required 1 dose of IM Zyprexa The nurse's trying to communicate with the psychiatric service to get more advice Review of Systems Review of Systems: Unobtainable due to cognitive status Physical Exam Physical Exam: Lying in bed comfortably this morning Constitutional: well developed and well nourished; not ill appearing Eyes: + eyelid abnormality (Black eye on the left side) ENMT: external ear and nose normal, oropharynx normal Neck: trachea midline, no thyromegaly Respiratory: no respiratory distress Auscultation: lungs clear to auscultation bilaterally Cardiovascular: Rate/Rhythm: regular rate and regular rhythm; not tachycardic Heart Sounds: normal S1 and normal S2; no murmur Extremities: no edema Gastrointestinal (Abdomen): Inspection/Auscultation: abdomen not distended Percussion/Palpation: abdomen soft; abdomen nontender Musculoskeletal: No acute arthritis involving any joint Neurologic: Alert and awake, very confused. Moving all limbs equally Psychiatric: Mood: + anxious mood Insight: + poor insight Lymphatic: no cervical or axillary lymphadenopathy Results & Data Results & Data ([facility]) Vital Signs (Past 12 Hours) Vital Signs O2 Del Method 10/14/22 08:00 Room Air Medications Administered Current Inpatient Medications Acetaminophen (Acetaminophen 325 Mg Tab) 650 mg PO Q4H PRN PRN Reason: pain/fever Stop: 11/09/22 19:34 Last Admin: 10/14/22 06:22 Dose: 650 mg Aspirin (Aspirin 81 Mg Ectab) 81 mg PO DAILY ARVIN Stop: 11/11/22 09:59 Last Admin: 10/14/22 08:03 Dose: 81 mg Donepezil HCl (Donepezil Hcl 5 Mg Tab) 5 mg PO HS ARVIN Stop: 11/11/22 20:59 Last Admin: 10/13/22 20:54 Dose: 5 mg Enoxaparin Sodium (Enoxaparin Inj 40 Mg/0.4 Ml Syr) 40 mg SQ QAM ARVIN Stop: 11/10/22 08:59 Last Admin: 10/14/22 08:03 Dose: 40 mg Ceftriaxone Sodium 1,000 mg/ (Dextrose) 60 mls @ 100 mls/hr IV DAILY ARVIN; Protocol Stop: 10/16/22 08:59 Last Infusion: 10/14/22 08:37 Dose: Infused Olanzapine (Olanzapine 10 Mg/2.1 Ml Sdv) 2.5 mg IM Q8 PRN PRN Reason: Agitation Stop: 11/09/22 19:34 Last Admin: 10/14/22 11:33 Dose: 2.5 mg Olanzapine (Olanzapine 5 Mg Tablet) 5 mg PO HS ARVIN Stop: 11/12/22 20:59 Last Admin: 10/13/22 20:53 Dose: 5 mg Olanzapine (Olanzapine 2.5 Mg Tab) 2.5 mg PO Q8H PRN PRN Reason: Agitation Stop: 11/12/22 15:44 Last Admin: 10/14/22 08:54 Dose: 2.5 mg Ondansetron HCl (Ondansetron Inj 2 Mg/Ml 2 Ml Vial) 4 mg IV Q6H PRN PRN Reason: Nausea Stop: 11/09/22 19:34 Polyethylene Glycol (Polyethylene (Miralax) 17 Gm Pack) 17 gm PO DAILY PRN PRN Reason: Constipation Stop: 11/09/22 19:34
--- NOTE | 2022-10-14 12:03 | Psychiatric Progress Note ---
Date of Service October 14, 2022 Impression / Recommendations Impression 77 yo female with no prior psych history, >1 year cognitive decline, found lost in car and brought to [facility] for assessment. Currently gram neg. rods in urine, sensitivities pending but any degree of delirium is likely superimposed on major cognitive disorder. Evidence of ischemic stroke (frontal lobe lacunar--acute to subacute) and microvascular changes (? vascular dementia) 10/14/22--intermittent agitation, mainly focussed on leaving now potentially paradoxical agitation with Ativan, no change on repeat head CT. (1) Altered mental status: (2) Acute UTI (urinary tract infection): Plan 10/14/22: avoid benzos as can be disinhibiting and cause paradoxical agitation in patients with dementia, if requries additional prn beyond 2.5 mg Zyprexa would suggest 2 mg Haldol and monitor for EPS. Continue trial of scheduled Zyprexa at hs. Interval History Identifying Information Alayna is a 77 yo female from [facility] who was admitted to hospitalist service for AMS/UTI. Reportedly on 302 warrant as patient was unwilling to stay for treatment initially. Chief Complaint agitation Subjective Subjective Patient was seen & assessed and interval progress reviewed with nursing and 1-on-1 aide. Patient took scheduled Zyprexa last hs for agitation. Patient attempted to leave room and hit head/eye on door jam resulting in significant bruising/swelling. Patient received prn but ultimately required soft restraints. this am she was pleasant/cooperative they were removed and she was cooperative with bathing/grooming. Was resting comfortably in bed during rounds. Soon after recieved low dose Ativan prior to head CT. Upon return she was agitated and required prn again, still agitated. Physical Exam Psychiatric examined prior to CT. Patient was calm, pleasant, oriented to self, complimented me, talked about her hair. No SI or abnormal motor movements. Vital Signs (Past 24 Hours) Last Vital Signs Temp 36.7 C 10/13/22 08:10 Pulse 61 10/13/22 08:10 Resp 20 10/13/22 08:10 BP 109/70 10/13/22 08:10 Pulse Ox 97 10/13/22 08:10 O2 Del Method 10/14/22 08:00 Results & Data ([facility]) Current Inpatient Medications Current Inpatient Medications: Current Inpatient Medications Acetaminophen (Acetaminophen 325 Mg Tab) 650 mg PO Q4H PRN PRN Reason: pain/fever Stop: 11/09/22 19:34 Last Admin: 10/14/22 06:22 Dose: 650 mg Aspirin (Aspirin 81 Mg Ectab) 81 mg PO DAILY ARVIN Stop: 11/11/22 09:59 Last Admin: 10/14/22 08:03 Dose: 81 mg Donepezil HCl (Donepezil Hcl 5 Mg Tab) 5 mg PO HS ARVIN Stop: 11/11/22 20:59 Last Admin: 10/13/22 20:54 Dose: 5 mg Enoxaparin Sodium (Enoxaparin Inj 40 Mg/0.4 Ml Syr) 40 mg SQ QAM ARVIN Stop: 11/10/22 08:59 Last Admin: 10/14/22 08:03 Dose: 40 mg Ceftriaxone Sodium 1,000 mg/ (Dextrose) 60 mls @ 100 mls/hr IV DAILY ARVIN; Protocol Stop: 10/16/22 08:59 Last Infusion: 10/14/22 08:37 Dose: Infused Olanzapine (Olanzapine 10 Mg/2.1 Ml Sdv) 2.5 mg IM Q8 PRN PRN Reason: Agitation Stop: 11/09/22 19:34 Last Admin: 10/14/22 11:33 Dose: 2.5 mg Olanzapine (Olanzapine 5 Mg Tablet) 5 mg PO HS ARVIN Stop: 11/12/22 20:59 Last Admin: 10/13/22 20:53 Dose: 5 mg Olanzapine (Olanzapine 2.5 Mg Tab) 2.5 mg PO Q8H PRN PRN Reason: Agitation Stop: 11/12/22 15:44 Last Admin: 10/14/22 08:54 Dose: 2.5 mg Ondansetron HCl (Ondansetron Inj 2 Mg/Ml 2 Ml Vial) 4 mg IV Q6H PRN PRN Reason: Nausea Stop: 11/09/22 19:34 Polyethylene Glycol (Polyethylene (Miralax) 17 Gm Pack) 17 gm PO DAILY PRN PRN Reason: Constipation Stop: 11/09/22 19:34
[2022-10-14] MEDS: DONEPEZIL HCL 5 MG TAB PO SCH (22:02)
[2022-10-14] MEDS: OLANZapine 5 MG TABLET PO SCH (22:03)
[2022-10-15] MEDS: ENOXAPARIN INJ 40 MG/0.4 ML SYR SQ SCH (08:39)
[2022-10-15] MEDS: cefTRIAXone SODIUM 1,000 MG in DEXTROSE 5% 50 ML IV SCH (08:39)
[2022-10-15] MEDS: ASPIRIN 81 MG ECTAB PO SCH ×2 (08:39→09:39)
--- NOTE | 2022-10-15 13:00 | Communication Note ---
Date of Service: October 15, 2022 Interim progress reviewed. Case discussed briefly with Dr. Carranza and CM. Patient is still receiving IV antibiotics so is not yet medically cleared. Calmer overnight. Cooperative with PO Zyprexa as ordered. Patient cannot return home per CM.
--- NOTE | 2022-10-15 15:13 | Hospitalist Progress Note ---
Date of Service October 15, 2022 Assessment & Plan (1) Altered mental state: Plan: Altered mental status/Delirium -off and on Acute metabolic encephalopathy:UTI, CVA Presumed dementia Urine toxicology: Negative Brain imaging as below Normal B12, folate Appreciate psychiatry input and recommendation Likely unsafe for driving upon discharge Zyprexa PRN Remains agitated and has been trying to get out of the room Requiring one-to-one sitter We will continue Zyprexa as per psychiatric recommendation Remained calm and quiet this morning during examination but later on became very aggressive and combative CT of the head was ordered but was not performed due to combativeness-doubt any intracranial events with the trauma--- CT scan did not show any hemorrhage or any other acute events Will contact to the psychiatric service for further recommendation Remains confused but no agitation this morning Acute/Subacute CVA-POA --MRI Brain:4 mm focus of resected diffusion within the left frontal lobe centrum semiovale is suggestive of an acute or subacute lacunar infarct. Involutional changes with minimal chronic microvascular ischemic disease. --Carotid USD:There is no sonographic evidence of hemodynamically significant s tenosis in the right or left carotid arterial system. Antegrade flow is shown in the vertebral arteries. --ECHO -qualitative EF 55% on limited transthoracic view, borderline concentric LVH and regional wall motion abnormalities cannot be excluded due to limited visualization --Lipid Panel-triglyceride on 65, cholesterol 196, LDL 117 and HDL 46 Start aspirin 81 mg daily Speech and swallow eval-she passed her dysphagia screen Neuro checks, Neurology consult-appreciate input and recommendation PT/OT Urinary tract infection Blood cultures pending Urine culture growing E coli -pansensitive Continue Rocephin No signs of sepsis Received IV fluids Suicidal Ideation One-on-one precautions Appreciate Psychiatry Input Zyprexa as needed for agitation Has been agitated with a fall this afternoon Required 1 dose of IM Haldol We will continue with Zyprexa as for recommendation of the psychiatrist Requiring one-to-one sitter and at times the patient is very restless and combative Pharmacologic restraint has not been working and has been requiring physical restraint as well DVT Px: Lovenox SQ Code Status Full Code Family Contact Didi (Patient's daughter in law) [phone] Admission and Anticipated Discharge Date Admission Date: October 10, 2022 Subjective 10/13/2022 The patient was seen and examined in medical telemetry unit She has been very anxious, agitated and wandering around the room Trying to get out of the room Remains under one-to-one sitter 10/14/2022 The patient was seen and examined in medical telemetry unit Yesterday she banged her forehead on the door x2 and has black eye on the left side She was reasonably conversant this morning during my examination and denies any significant symptoms Later on she was noted to be very agitated and combative and required 1 dose of IM Zyprexa The nurse's trying to communicate with the psychiatric service to get more advice 10/15/2022 The patient was seen and examined in medical telemetry unit She has been stable this morning without any acute distress Not noted to be aggressive this morning Review of Systems Review of Systems: Unobtainable due to cognitive status Physical Exam Physical Exam: Lying in bed comfortably this morning Constitutional: well developed and well nourished; not ill appearing Eyes: PERRL, conjunctivae normal, anicteric sclerae + eyelid abnormality (Black eye on the left side) ENMT: external ear and nose normal, oropharynx normal Neck: trachea midline, no thyromegaly Respiratory: no respiratory distress Auscultation: lungs clear to auscultation bilaterally Cardiovascular: Rate/Rhythm: regular rate and regular rhythm; not tachycardic Heart Sounds: normal S1 and normal S2; no murmur Extremities: no edema Gastrointestinal (Abdomen): Inspection/Auscultation: abdomen not distended Percussion/Palpation: abdomen soft; abdomen nontender Musculoskeletal: No acute arthritis in any joint Neurologic: Alert and awake. Pleasantly confused. No focal neurodeficit Psychiatric: Mood: + anxious mood Insight: + poor insight Lymphatic: no cervical or axillary lymphadenopathy Results & Data Results & Data ([facility]) Vital Signs (Past 12 Hours) Vital Signs O2 Del Method 10/15/22 07:50 Room Air Medications Administered Current Inpatient Medications Acetaminophen (Acetaminophen 325 Mg Tab) 650 mg PO Q4H PRN PRN Reason: pain/fever Stop: 11/09/22 19:34 Last Admin: 10/14/22 06:22 Dose: 650 mg Aspirin (Aspirin 81 Mg Ectab) 81 mg PO DAILY ARVIN Stop: 11/11/22 09:59 Last Admin: 10/15/22 09:39 Dose: 81 mg Donepezil HCl (Donepezil Hcl 5 Mg Tab) 5 mg PO HS ARVIN Stop: 11/11/22 20:59 Last Admin: 10/14/22 22:02 Dose: Not Given Enoxaparin Sodium (Enoxaparin Inj 40 Mg/0.4 Ml Syr) 40 mg SQ QAM ARVIN Stop: 11/10/22 08:59 Last Admin: 10/15/22 08:39 Dose: Not Given Ceftriaxone Sodium 1,000 mg/ (Dextrose) 60 mls @ 100 mls/hr IV DAILY ARVIN; Protocol Stop: 10/16/22 08:59 Last Infusion: 10/15/22 10:05 Dose: Infused Olanzapine (Olanzapine 10 Mg/2.1 Ml Sdv) 2.5 mg IM Q8 PRN PRN Reason: Agitation Stop: 11/09/22 19:34 Last Admin: 10/14/22 11:33 Dose: 2.5 mg Olanzapine (Olanzapine 5 Mg Tablet) 5 mg PO HS ARVIN Stop: 11/12/22 20:59 Last Admin: 10/14/22 22:03 Dose: Not Given Olanzapine (Olanzapine 2.5 Mg Tab) 2.5 mg PO Q8H PRN PRN Reason: Agitation Stop: 11/12/22 15:44 Last Admin: 10/14/22 08:54 Dose: 2.5 mg Ondansetron HCl (Ondansetron Inj 2 Mg/Ml 2 Ml Vial) 4 mg IV Q6H PRN PRN Reason: Nausea Stop: 11/09/22 19:34 Polyethylene Glycol (Polyethylene (Miralax) 17 Gm Pack) 17 gm PO DAILY PRN PRN Reason: Constipation Stop: 11/09/22 19:34
[2022-10-15] MEDS: DONEPEZIL HCL 5 MG TAB PO SCH (21:27)
[2022-10-15] MEDS: OLANZapine 5 MG TABLET PO SCH (21:27)
[2022-10-15] MEDS: ACETAMINOPHEN 325 MG TAB PO PRN (21:36)
[2022-10-16] MEDS: ENOXAPARIN INJ 40 MG/0.4 ML SYR SQ SCH (08:30)
[2022-10-16] MEDS: ASPIRIN 81 MG ECTAB PO SCH (08:31)
--- NOTE | 2022-10-16 13:21 | Hospitalist Progress Note ---
Date of Service October 16, 2022 Assessment & Plan (1) Altered mental state: Plan: Altered mental status/Delirium -off and on Acute metabolic encephalopathy:UTI, CVA Presumed dementia Urine toxicology: Negative Brain imaging as below Normal B12, folate Appreciate psychiatry input and recommendation Likely unsafe for driving upon discharge Zyprexa PRN Remains agitated and has been trying to get out of the room Requiring one-to-one sitter We will continue Zyprexa as per psychiatric recommendation Remained calm and quiet this morning during examination but later on became very aggressive and combative CT of the head was ordered but was not performed due to combativeness-doubt any intracranial events with the trauma--- CT scan did not show any hemorrhage or any other acute events Will contact to the psychiatric service for further recommendation Remains confused but no agitation this morning and no other behavioral challenges Acute/Subacute CVA-POA --MRI Brain:4 mm focus of resected diffusion within the left frontal lobe centrum semiovale is suggestive of an acute or subacute lacunar infarct. Involutional changes with minimal chronic microvascular ischemic disease. --Carotid USD:There is no sonographic evidence of hemodynamically significant stenosis in the right or left carotid arterial system. Antegrade flow is shown in the vertebral arteries. --ECHO -qualitative EF 55% on limited transthoracic view, borderline concentric LVH and regional wall motion abnormalities cannot be excluded due to limited visualization --Lipid Panel-triglyceride on 65, cholesterol 196, LDL 117 and HDL 46 Start aspirin 81 mg daily Speech and swallow eval-she passed her dysphagia screen Neuro checks, Neurology consult-appreciate input and recommendation PT/OT -awaiting placement Urinary tract infection Blood cultures pending Urine culture growing E coli -pansensitive Continue Rocephin and subsequently finish the course of antibiotic No signs of sepsis Received IV fluids Suicidal Ideation One-on-one precautions Appreciate Psychiatry Input Zyprexa as needed for agitation Has been agitated with a fall this afternoon Required 1 dose of IM Haldol We will continue with Zyprexa as for recommendation of the psychiatrist Requiring one-to-one sitter and at times the patient is very restless and combative Pharmacologic restraint has not been working and has been requiring physical restraint as well DVT Px: Lovenox SQ Code Status Full Code Family Contact Didi (Patient's daughter in law) [phone] Admission and Anticipated Discharge Date Admission Date: October 10, 2022 Subjective 10/13/2022 The patient was seen and examined in medical telemetry unit She has been very anxious, agitated and wandering around the room Trying to get out of the room Remains under one-to-one sitter 10/14/2022 The patient was seen and examined in medical telemetry unit Yesterday she banged her forehead on the door x2 and has black eye on the left side She was reasonably conversant this morning during my examination and denies any significant symptoms Later on she was noted to be very agitated and combative and required 1 dose of IM Zyprexa The nurse's trying to communicate with the psychiatric service to get more advice 10/15/2022 The patient was seen and examined in medical telemetry unit She has been stable this morning without any acute distress Not noted to be aggressive this morning 10/16/2022 The patient was seen and examined in medical telemetry unit She has been stable and is still requiring one-to-one sitter No more agitation and/or aggressiveness noted in last 24 hours Review of Systems Review of Systems: Unobtainable due to cognitive status Physical Exam Physical Exam: Lying in bed comfortably this morning Constitutional: well developed and well nourished; not ill appearing Eyes: PERRL, conjunctivae normal, anicteric sclerae + eyelid abnormality (Black eye on the left side) ENMT: external ear and nose normal, oropharynx normal Neck: trachea midline, no thyromegaly Respiratory: no respiratory distress Auscultation: lungs clear to auscultation bilaterally Cardiovascular: Rate/Rhythm: regular rate and regular rhythm; not tachycardic Heart Sounds: normal S1 and normal S2; no murmur Extremities: no edema Gastrointestinal (Abdomen): Inspection/Auscultation: abdomen not distended Percussion/Palpation: abdomen soft; abdomen nontender Musculoskeletal: No acute arthritis in any joint Psychiatric: Mood: + anxious mood Insight: + poor insight Lymphatic: no cervical or axillary lymphadenopathy Results & Data Results & Data ([facility]) Vital Signs (Past 12 Hours) Vital Signs Temp Pulse Resp BP Pulse Ox O2 Del Method 10/16/22 08:30 Room Air 10/16/22 08:27 36.7 C 57 L 18 123/62 96 Room Air Medications Administered Current Inpatient Medications Acetaminophen (Acetaminophen 325 Mg Tab) 650 mg PO Q4H PRN PRN Reason: pain/fever Stop: 11/09/22 19:34 Last Admin: 10/15/22 21:36 Dose: 650 mg Aspirin (Aspirin 81 Mg Ectab) 81 mg PO DAILY ARVIN Stop: 11/11/22 09:59 Last Admin: 10/16/22 08:31 Dose: 81 mg Donepezil HCl (Donepezil Hcl 5 Mg Tab) 5 mg PO HS ARVIN Stop: 11/11/22 20:59 Last Admin: 10/15/22 21:27 Dose: 5 mg Enoxaparin Sodium (Enoxaparin Inj 40 Mg/0.4 Ml Syr) 40 mg SQ QAM ARVIN Stop: 11/10/22 08:59 Last Admin: 10/16/22 08:30 Dose: Not Given Olanzapine (Olanzapine 10 Mg/2.1 Ml Sdv) 2.5 mg IM Q8 PRN PRN Reason: Agitation Stop: 11/09/22 19:34 Last Admin: 10/14/22 11:33 Dose: 2.5 mg Olanzapine (Olanzapine 5 Mg Tablet) 5 mg PO HS ARVIN Stop: 11/12/22 20:59 Last Admin: 10/15/22 21:27 Dose: 5 mg Olanzapine (Olanzapine 2.5 Mg Tab) 2.5 mg PO Q8H PRN PRN Reason: Agitation Stop: 11/12/22 15:44 Last Admin: 10/14/22 08:54 Dose: 2.5 mg Ondansetron HCl (Ondansetron Inj 2 Mg/Ml 2 Ml Vial) 4 mg IV Q6H PRN PRN Reason: Nausea Stop: 11/09/22 19:34 Polyethylene Glycol (Polyethylene (Miralax) 17 Gm Pack) 17 gm PO DAILY PRN PRN Reason: Constipation Stop: 11/09/22 19:34
--- NOTE | 2022-10-16 14:40 | Communication Note ---
Date of Service: October 16, 2022 Interim progress reviewed. Cooperative with edson cain. MS and cooperation with care appears to be improved in past 24 hrs. will follow.
[2022-10-16] MEDS: DONEPEZIL HCL 5 MG TAB PO SCH (21:05)
[2022-10-16] MEDS: OLANZapine 5 MG TABLET PO SCH (21:05)
[2022-10-17] MEDS: OLANZapine 10 MG/2.1 ML SDV IM PRN ×3 (03:25→19:21)
[2022-10-17] MEDS ORDERED: HALOPERIDOL LACTATE 5 MG/ML 1 ML VIAL IM STA ×2 (07:55→14:21)
[2022-10-17] MEDS: ENOXAPARIN INJ 40 MG/0.4 ML SYR SQ SCH (09:06)
[2022-10-17] MEDS: ASPIRIN 81 MG ECTAB PO SCH (09:06)
[2022-10-17] MEDS ORDERED: OLANZapine 5 MG TABLET PO PRN (09:09)
--- NOTE | 2022-10-17 10:58 | Hospitalist Progress Note ---
Date of Service October 17, 2022 Assessment & Plan (1) Altered mental state: Plan: Altered mental status/Delirium -off and on Acute metabolic encephalopathy:UTI, CVA Presumed dementia Urine toxicology: Negative Brain imaging as below Normal B12, folate Appreciate psychiatry input and recommendation Likely unsafe for driving upon discharge Zyprexa PRN Remains agitated and has been trying to get out of the room Requiring one-to-one sitter We will continue Zyprexa as per psychiatric recommendation Remained calm and quiet this morning during examination but later on became very aggressive and combative CT of the head was ordered but was not performed due to combativeness-doubt any intracranial events with the trauma--- CT scan did not show any hemorrhage or any other acute events Will contact to the psychiatric service for further recommendation Remains confused and hallucinating at times Still requiring occasional doses of IM Zyprexa and/or Haldol Continue with one-to-one sitter Acute/Subacute CVA-POA --MRI Brain:4 mm focus of resected diffusion within the left frontal lobe centrum semiovale is suggestive of an acute or subacute lacunar infarct. Involutional changes with minimal chronic microvascular ischemic disease. --Carotid USD:There is no sonographic evidence of hemodynamically significant stenosis in the right or left carotid arterial system. Antegrade flow is shown in the vertebral arteries. --ECHO -qualitative EF 55% on limited transthoracic view, borderline concentric LVH and regional wall motion abnormalities cannot be excluded due to limited visualization --Lipid Panel-triglyceride on 65, cholesterol 196, LDL 117 and HDL 46 Start aspirin 81 mg daily Speech and swallow eval-she passed her dysphagia screen Neuro checks, Neurology consult-appreciate input and recommendation PT/OT -awaiting placement Urinary tract infection Blood cultures pending Urine culture growing E coli -pansensitive Continue Rocephin and subsequently finish the course of antibiotic No signs of sepsis Received IV fluids Suicidal Ideation One-on-one precautions Appreciate Psychiatry Input Zyprexa as needed for agitation Has been agitated with a fall this afternoon Required 1 dose of IM Haldol We will continue with Zyprexa as for recommendation of the psychiatrist Requiring one-to-one sitter and at times the patient is very restless and combative Pharmacologic restraint has not been working and has been requiring physical restraint as well DVT Px: Lovenox SQ Code Status Full Code Family Contact Didi (Patient's daughter in law) [phone] Admission and Anticipated Discharge Date Admission Date: October 10, 2022 Subjective 10/13/2022 The patient was seen and examined in medical telemetry unit She has been very anxious, agitated and wandering around the room Trying to get out of the room Remains under one-to-one sitter 10/14/2022 The patient was seen and examined in medical telemetry unit Yesterday she banged her forehead on the door x2 and has black eye on the left side She was reasonably conversant this morning during my examination and denies any significant symptoms Later on she was noted to be very agitated and combative and required 1 dose of IM Zyprexa The nurse's trying to communicate with the psychiatric service to get more advice 10/15/2022 The patient was seen and examined in medical telemetry unit She has been stable this morning without any acute distress Not noted to be aggressive this morning 10/16/2022 The patient was seen and examined in medical telemetry unit She has been stable and is still requiring one-to-one sitter No more agitation and/or aggressiveness noted in last 24 hours 10/17/2022 The patient was seen and examined in medical telemetry unit She required IM dose of Zyprexa last night and Haldol this morning Still requiring one-to-one sitter Remains confused but not aggressive this morning during my examination Review of Systems Review of Systems: Unobtainable due to cognitive status Physical Exam Physical Exam: Standing in the room without any acute distress Constitutional: well developed and well nourished; not ill appearing Eyes: PERRL, conjunctivae normal, anicteric sclerae + eyelid abnormality (Black eye on the left side) ENMT: external ear and nose normal, oropharynx normal Neck: trachea midline, no thyromegaly Respiratory: no respiratory distress Auscultation: lungs clear to auscultation bilaterally Cardiovascular: Rate/Rhythm: regular rate and regular rhythm; not tachycardic Heart Sounds: normal S1 and normal S2; no murmur Extremities: no edema Gastrointestinal (Abdomen): Inspection/Auscultation: abdomen not distended Percussion/Palpation: abdomen soft; abdomen nontender Musculoskeletal: No acute arthritis in any joint Psychiatric: Mood: + anxious mood Insight: + poor insight Lymphatic: no cervical or axillary lymphadenopathy Results & Data Results & Data ([facility]) Medications Administered Current Inpatient Medications Acetaminophen (Acetaminophen 325 Mg Tab) 650 mg PO Q4H PRN PRN Reason: pain/fever Stop: 11/09/22 19:34 Last Admin: 10/15/22 21:36 Dose: 650 mg Aspirin (Aspirin 81 Mg Ectab) 81 mg PO DAILY ARVIN Stop: 11/11/22 09:59 Last Admin: 10/17/22 09:06 Dose: Not Given Donepezil HCl (Donepezil Hcl 5 Mg Tab) 5 mg PO HS ARVIN Stop: 11/11/22 20:59 Last Admin: 10/16/22 21:05 Dose: Not Given Enoxaparin Sodium (Enoxaparin Inj 40 Mg/0.4 Ml Syr) 40 mg SQ QAM ARVIN Stop: 11/10/22 08:59 Last Admin: 10/17/22 09:06 Dose: Not Given Olanzapine (Olanzapine 5 Mg Tablet) 5 mg PO HS ARVIN Stop: 11/12/22 20:59 Last Admin: 10/16/22 21:05 Dose: Not Given Olanzapine (Olanzapine 10 Mg/2.1 Ml Sdv) 5 mg IM Q8 PRN PRN Reason: Agitation Stop: 11/09/22 19:34 Olanzapine (Olanzapine 5 Mg Tablet) 5 mg PO Q8H PRN PRN Reason: Agitation Stop: 11/12/22 15:44 Ondansetron HCl (Ondansetron Inj 2 Mg/Ml 2 Ml Vial) 4 mg IV Q6H PRN PRN Reason: Nausea Stop: 11/09/22 19:34 Polyethylene Glycol (Polyethylene (Miralax) 17 Gm Pack) 17 gm PO DAILY PRN PRN Reason: Constipation Stop: 11/09/22 19:34
--- NOTE | 2022-10-17 12:03 | Psychiatric Progress Note ---
Date of Service October 17, 2022 Impression / Recommendations Impression 77 yo female with no prior psych history, >1 year cognitive decline, found lost in car and brought to [facility] for assessment. Currently gram neg. rods in urine, sensitivities pending but any degree of delirium is likely superimposed on major cognitive disorder. Evidence of ischemic stroke (frontal lobe lacunar--acute to subacute) and microvascular changes (? vascular dementia) 10/17/22: now that patient's delirium has quieted for >24 hr and completed IV antibiotics, her dementia remains apparent with intermittent periods of worsening psychosis of unclear etiology. (1) Psychotic disorder: (2) Major neurocognitive disorder: Plan 10/17/22: patient is now medically cleared so 302 will be completed for further treatment, monitoring, and [facility] psych referral. Interval History Identifying Information Alayna is a 77 yo female from [facility]) who was admitted to hospit alist service for AMS/UTI. Reportedly on 302 warrant as patient was unwilling to stay for treatment initially. Chief Complaint "I can see him, I have to go." Review of Systems Notes patient unable to complete Subjective Subjective Patient was seen & assessed and interval progress reviewed with nursing, aide and briefly Dr. Carranza. Patient refused Zyprexa last hs and although her delirium was clearly resolved based on more redirectable and pleasantly confused, she escalated to more paranoid behavior and hiding pens and plastic silverware under her mattress. Even with Zyprexa IM (granted 2.5) she was up pacing the room much of the night, attempts to push self past the 1:1. Liaison attended to bedside this am, patient now on safe tray and needed assistance with her menu for finger foods. Patient was seeing worms on the floor. Physical Exam Psychiatric restless, responding to internal stimuli, delusional, speech disorganized. thoughts perseverative. Vital Signs (Past 24 Hours) Last Vital Signs Temp 37.1 C 10/16/22 15:36 Pulse 85 10/16/22 22:55 Resp 18 10/16/22 22:55 BP 160/60 H 10/16/22 22:55 Pulse Ox 97 10/16/22 22:55 O2 Del Method 10/16/22 22:55 Results & Data ([facility]) Current Inpatient Medications Current Inpatient Medications: Current Inpatient Medications Acetaminophen (Acetaminophen 325 Mg Tab) 650 mg PO Q4H PRN PRN Reason: pain/fever Stop: 11/09/22 19:34 Last Admin: 10/15/22 21:36 Dose: 650 mg Aspirin (Aspirin 81 Mg Ectab) 81 mg PO DAILY ARVIN Stop: 11/11/22 09:59 Last Admin: 10/17/22 09:06 Dose: Not Given Donepezil HCl (Donepezil Hcl 5 Mg Tab) 5 mg PO HS ARVIN Stop: 11/11/22 20:59 Last Admin: 10/16/22 21:05 Dose: Not Given Enoxaparin Sodium (Enoxaparin Inj 40 Mg/0.4 Ml Syr) 40 mg SQ QAM ARVIN Stop: 11/10/22 08:59 Last Admin: 10/17/22 09:06 Dose: Not Given Olanzapine (Olanzapine 5 Mg Tablet) 5 mg PO HS ARVIN Stop: 11/12/22 20:59 Last Admin: 10/16/22 21:05 Dose: Not Given Olanzapine (Olanzapine 10 Mg/2.1 Ml Sdv) 5 mg IM Q8 PRN PRN Reason: Agitation Stop: 11/09/22 19:34 Last Admin: 10/17/22 10:55 Dose: 5 mg Olanzapine (Olanzapine 5 Mg Tablet) 5 mg PO Q8H PRN PRN Reason: Agitation Stop: 11/12/22 15:44 Ondansetron HCl (Ondansetron Inj 2 Mg/Ml 2 Ml Vial) 4 mg IV Q6H PRN PRN Reason: Nausea Stop: 11/09/22 19:34 Polyethylene Glycol (Polyethylene (Miralax) 17 Gm Pack) 17 gm PO DAILY PRN PRN Reason: Constipation Stop: 11/09/22 19:34
[2022-10-17] MEDS: DONEPEZIL HCL 5 MG TAB PO SCH (21:25)
[2022-10-17] MEDS: OLANZapine 5 MG TABLET PO SCH (21:25)
[2022-10-18] MEDS: ACETAMINOPHEN 325 MG TAB PO PRN (01:17)
[2022-10-18] MEDS: ASPIRIN 81 MG ECTAB PO SCH (09:37)
[2022-10-18] MEDS: ENOXAPARIN INJ 40 MG/0.4 ML SYR SQ SCH (09:37)
--- NOTE | 2022-10-18 13:53 | Psychiatric Progress Note ---
Date of Service October 18, 2022 Impression / Recommendations Impression 77 yo female with no prior psych history, >1 year cognitive decline, found lost in car and brought to [facility] for assessment. Currently gram neg. rods in urine, sensitivities pending but any degree of delirium is likely superimposed on major cognitive disorder. Evidence of ischemic stroke (frontal lobe lacunar--acute to subacute) and microvascular changes (? vascular dementia). Diagnostically seems most consistent with hypoactive delirium, particularly given excessive sedation today, and delirium can often take weeks to months to improve especially in those in with a pre-existing history of dementia. Suspect ongoing periods of agitation and confusion are due to a mix of delirium superimposed on dementia with behavioral disturbance. Given no prior psych history unclear if she will continue to meet 302 criteria but for now will continue [facility] psych bed search per [facility] as she was sedated today which limited further assessment. Has not had any further statements of SI since admission. 10/18/22: reviewed interim progress, concern remains for delirium superimposed on dementia with behavioral disturbances. Will continue 302 for now. Continue zyprexa hs for delirum and agitation. (1) Psychotic disorder: (2) Major neurocognitive disorder: Plan 10/18/22: remains on 1-on-1 and 302 for now with [facility] working on [facility] psych bed search, unclear if she will continue to meet 302 criteria given high suspicion for ongoing delirium. May want to consider EEG, if she can tolerate this, to determine potential delirium component versus worsening of dementia versus new cause of agitation/behavioral changes. Interval History Identifying Information Alayna is a 77 yo female from [facility]) who was admitted to hospitalist service for AMS/UTI. Reportedly on 302 warrant as patient was unwilling to stay for treatment initially. Chief Complaint mute Review of Systems Notes sleeping excessively today, eating breakfast Subjective Subjective Patient was seen & assessed and interval progress reviewed with nurse and -on-1 at bedside. Alayna required restraints until 3am last night and was restless in the mechanical apprentice. She took her morning medication and ate breakfast but then has been sleeping all day. When awake per -on-1 she speaks in "jibberish" and does not seem to be fully alert. Continues to have significant bruise on her left eye from previously walking into a door. Physical Exam Psychiatric Orientation: + not alert Apperance: + disheveled Eye Contact: + poor eye contact Motor Behavior: no abnormal motor movements Speech: + mute Affect: + flat affect Mood: + irritable mood Thought Process: + looseness of associations Insight: + severely impaired insight Judgement: + severely impaired judgement Vital Signs (Past 24 Hours) Last Vital Signs Temp 36.7 C 10/18/22 09:26 Pulse 75 10/18/22 09:26 Resp 19 10/18/22 09:26 BP 132/74 10/18/22 09:26 Pulse Ox 92 10/18/22 09:26 O2 Del Method 10/18/22 09:59 Results & Data ([facility]) Current Inpatient Medications Current Inpatient Medications: Current Inpatient Medications Acetaminophen (Acetaminophen 325 Mg Tab) 650 mg PO Q4H PRN PRN Reason: pain/fever Stop: 11/09/22 19:34 Last Admin: 10/18/22 01:17 Dose: 650 mg Aspirin (Aspirin 81 Mg Ectab) 81 mg PO DAILY ARVIN Stop: 11/11/22 09:59 Last Admin: 10/18/22 09:37 Dose: 81 mg Donepezil HCl (Donepezil Hcl 5 Mg Tab) 5 mg PO HS ARVIN Stop: 11/11/22 20:59 Last Admin: 10/17/22 21:25 Dose: Not Given Enoxaparin Sodium (Enoxaparin Inj 40 Mg/0.4 Ml Syr) 40 mg SQ QAM ARVIN Stop: 11/10/22 08:59 Last Admin: 10/18/22 09:37 Dose: 40 mg Olanzapine (Olanzapine 5 Mg Tablet) 5 mg PO HS ARVIN Stop: 11/12/22 20:59 Last Admin: 10/17/22 21:25 Dose: Not Given Olanzapine (Olanzapine 10 Mg/2.1 Ml Sdv) 5 mg IM Q8 PRN PRN Reason: Agitation Stop: 11/09/22 19:34 Last Admin: 10/17/22 19:21 Dose: 5 mg Olanzapine (Olanzapine 5 Mg Tablet) 5 mg PO Q8H PRN PRN Reason: Agitation Stop: 11/12/22 15:44 Ondansetron HCl (Ondansetron Inj 2 Mg/Ml 2 Ml Vial) 4 mg IV Q6H PRN PRN Reason: Nausea Stop: 11/09/22 19:34 Polyethylene Glycol (Polyethylene (Miralax) 17 Gm Pack) 17 gm PO DAILY PRN PRN Reason: Constipation Stop: 11/09/22 19:34
--- NOTE | 2022-10-18 15:55 | Hospitalist Progress Note ---
Date of Service October 18, 2022 Assessment & Plan (1) Altered mental state: Plan: Altered mental status/Delirium -off and on Acute metabolic encephalopathy:UTI, CVA Presumed dementia Urine toxicology: Negative Brain imaging as below Normal B12, folate Appreciate psychiatry input and recommendation Likely unsafe for driving upon discharge Zyprexa PRN Remains agitated and has been trying to get out of the room Requiring one-to-one sitter We will continue Zyprexa as per psychiatric recommendation Remained calm and quiet this morning during examination but later on became very aggressive and combative CT of the head was ordered but was not performed due to combativeness-doubt any intracranial events with the trauma--- CT scan did not show any hemorrhage or any other acute events Will contact to the psychiatric service for further recommendation Remains confused and hallucinating at times Still requiring occasional doses of IM Zyprexa and/or Haldol Has been sleeping a lot throughout this morning but otherwise is stable hemodynamically Remains with one-to-one sitter and is 302ed Acute/Subacute CVA-POA --MRI Brain:4 mm focus of resected diffusion within the left frontal lobe centrum semiovale is suggestive of an acute or subacute lacunar infarct. Involutional changes with minimal chronic microvascular ischemic disease. --Carotid USD:There is no sonographic evidence of hemodynamically significant stenosis in the right or left carotid arterial system. Antegrade flow is shown in the vertebral arteries. --ECHO -qualitative EF 55% on limited transthoracic view, borderline concentric LVH and regional wall motion abnormalities cannot be excluded due to limited visualization --Lipid Panel-triglyceride on 65, cholesterol 196, LDL 117 and HDL 46 Start aspirin 81 mg daily Speech and swallow eval-she passed her dysphagia screen Neuro checks, Neurology consult-appreciate input and recommendation PT/OT -awaiting placement Urinary tract infection Blood cultures pending Urine culture growing E coli -pansensitive Continue Rocephin and subsequently finish the course of antibiotic No signs of sepsis Course of antibiotic is done Suicidal Ideation One-on-one precautions Appreciate Psychiatry Input Zyprexa as needed for agitation Has been agitated with a fall this afternoon Required 1 dose of IM Haldol We will continue with Zyprexa as for recommendation of the psychiatrist Requiring one-to-one sitter and at times the patient is very restless and combative Pharmacologic restraint has not been working and has been requiring physical restraint as well Occasional agitation and combativeness DVT Px: Lovenox SQ Code Status Full Code Family Contact Didi (Patient's daughter in law) [phone] Admission and Anticipated Discharge Date Admission Date: October 10, 2022 Subjective 10/13/2022 The patient was seen and examined in medical telemetry unit She has been very anxious, agitated and wandering around the room Trying to get out of the room Remains under one-to-one sitter 10/14/2022 The patient was seen and examined in medical telemetry unit Yesterday she banged her forehead on the door x2 and has black eye on the left side She was reasonably conversant this morning during my examination and denies any significant symptoms Later on she was noted to be very agitated and combative and required 1 dose of IM Zyprexa The nurse's trying to communicate with the psychiatric service to get more advice 10/15/2022 The patient was seen and examined in medical telemetry unit She has been stable this morning without any acute distress Not noted to be aggressive this morning 10/16/2022 The patient was seen and examined in medical telemetry unit She has been stable and is still requiring one-to-one sitter No more agitation and/or aggressiveness noted in last 24 hours 10/17/2022 The patient was seen and examined in medical telemetry unit She required IM dose of Zyprexa last night and Haldol this morning Still requiring one-to-one sitter Remains confused but not aggressive this morning during my examination 10/18/2020 The patient was seen and examined in medical telemetry unit She has been sleeping throughout the morning Has had breakfast and lunch and denies any significant symptoms during ex amination at around 350 PM Review of Systems Review of Systems: Unobtainable due to cognitive status Physical Exam Physical Exam: Standing in the room without any acute distress Constitutional: well developed and well nourished; not ill appearing Eyes: PERRL, conjunctivae normal, anicteric sclerae + eyelid abnormality (Black eye on the left side) ENMT: external ear and nose normal, oropharynx normal Neck: trachea midline, no thyromegaly Respiratory: no respiratory distress Auscultation: lungs clear to auscultation bilaterally Cardiovascular: Rate/Rhythm: regular rate and regular rhythm; not tachycardic Heart Sounds: normal S1 and normal S2; no murmur Extremities: no edema Gastrointestinal (Abdomen): Inspection/Auscultation: abdomen not distended Percussion/Palpation: abdomen soft; abdomen nontender Psychiatric: Mood: + anxious mood Insight: + poor insight Lymphatic: no cervical or axillary lymphadenopathy Results & Data Results & Data ([facility]) Vital Signs (Past 12 Hours) Vital Signs Temp Pulse Pulse Resp BP Pulse Ox O2 Del Method 10/18/22 15:11 53 L 10/18/22 15:08 37.2 C 76 18 111/69 93 Room Air 10/18/22 09:59 Room Air 10/18/22 09:26 36.7 C 75 19 132/74 92 Room Air 10/18/22 07:17 51 L Medications Administered Current Inpatient Medications Acetaminophen (Acetaminophen 325 Mg Tab) 650 mg PO Q4H PRN PRN Reason: pain/fever Stop: 11/09/22 19:34 Last Admin: 10/18/22 01:17 Dose: 650 mg Aspirin (Aspirin 81 Mg Ectab) 81 mg PO DAILY ARVIN Stop: 11/11/22 09:59 Last Admin: 10/18/22 09:37 Dose: 81 mg Donepezil HCl (Donepezil Hcl 5 Mg Tab) 5 mg PO HS ARVIN Stop: 11/11/22 20:59 Last Admin: 10/17/22 21:25 Dose: Not Given Enoxaparin Sodium (Enoxaparin Inj 40 Mg/0.4 Ml Syr) 40 mg SQ QAM ARVIN Stop: 11/10/22 08:59 Last Admin: 10/18/22 09:37 Dose: 40 mg Olanzapine (Olanzapine 5 Mg Tablet) 5 mg PO HS ARVIN Stop: 11/12/22 20:59 Last Admin: 10/17/22 21:25 Dose: Not Given Olanzapine (Olanzapine 10 Mg/2.1 Ml Sdv) 5 mg IM Q8 PRN PRN Reason: Agitation Stop: 11/09/22 19:34 Last Admin: 10/17/22 19:21 Dose: 5 mg Olanzapine (Olanzapine 5 Mg Tablet) 5 mg PO Q8H PRN PRN Reason: Agitation Stop: 11/12/22 15:44 Ondansetron HCl (Ondansetron Inj 2 Mg/Ml 2 Ml Vial) 4 mg IV Q6H PRN PRN Reason: Nausea Stop: 11/09/22 19:34 Polyethylene Glycol (Polyethylene (Miralax) 17 Gm Pack) 17 gm PO DAILY PRN PRN Reason: Constipation Stop: 11/09/22 19:34
[2022-10-18] MEDS: DONEPEZIL HCL 5 MG TAB PO SCH (20:04)
[2022-10-18] MEDS: OLANZapine 5 MG TABLET PO SCH (20:04)
[2022-10-19] MEDS: ASPIRIN 81 MG ECTAB PO SCH (09:16)
[2022-10-19] MEDS: ENOXAPARIN INJ 40 MG/0.4 ML SYR SQ SCH (09:16)
--- NOTE | 2022-10-19 13:40 | Psychiatric Progress Note ---
Date of Service October 19, 2022 Impression / Recommendations Impression 77 yo female with no prior psych history, >1 year cognitive decline, found lost in car and brought to [facility] for assessment and found to have UTI. Diagnostically consistent with major neurocognitive disorder with superimposed delirium that continues to wax and wane. Given primary diagnoses of dementia and delirium and no psychiatric history she no longer meets 302 criteria (in the state of [place] dementia and delirium are not qualifiable diagnoses for involuntary psychiatric treatment) and there are no symptoms consistent with psychosis nor sultana nor SI nor depression nor sultana. Acute risk of self-harm is low given denial of SI, reasons for living and no depression. Chronic risk is moderate given impulsivity and disinhibition from dementia. 10/19/22: Agitation lessened overnight and today. Remains very confused with severe memory challenges consistent with prior to admission cognitive decline. Does not meet 302 criteria any longer so this is now discontinued. Given severe dementia she is not felt to have decision making capacity to leave AMA, family working on POA. Recommend secure memory care placement versus living environment with 24/7 family/care supervision versus mcc placement. (1) Major neurocognitive disorder: (2) Delirium: (3) Dementia with behavioral disturbance: Plan -No longer meets 302 criteria -Does not have decision making capacity to leave AMA -Not felt to be at risk of suicide, discussed with Dr. Carranza, would discontinue suicide precautions -1-on-1 as needed at discretion of hospitalist given dementia and history of wandering/confusion -Continue zyprexa 5mg po hs for dementia with behavioral disturbance and delirium -Continue with delirium prevention measures: raising blinds during the day, closing at night, contact with family/friends, explaining procedures/nursing care measures prior to physical contact, correct any hearing and visual impairments -For behavioral emergency: olanzapine 5 mg IM x 1 (DO NOT exceed 10mg per 24 hours, check EKG if IM dose required, NEVER co-administer with IM or IV benzodiazepines). -Recommend secure memory care placement vs with family with 24/7 supervision vs mcc placement -Discussed with Dr. Carranza and with case management Interval History Identifying Information Alayna is a 77 yo female from [facility] who was admitted to hospitalist service for AMS/UTI. Reportedly on 302 warrant as patient was unwilling to stay for treatment initially. Psychiatry consulted for recommendations. Chief Complaint "Oh hello". Review of Systems Notes slept well, eating well Subjective Subjective Patient was seen & assessed and interval progress reviewed with RN. Took po zyprexa last night. Did not require any IM medication nor restraints. She slept overnight and has been pleasant but confused in all interactions overnight and today. Smiles when I enter the room oriented to herself but not to place, year, etc. Thinks she knows my telling me "Ah yes nice to see you I was talking to your earlier" even though we have never met. Tells me she has been spending the day "shopping for blouses and things". Evidence of some word finding difficulty. 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 Thinks she ate lunch but did not as food just arrived and was uneaten. Very pleasant and friendly. Adamantly denies SI when asked stating "no never" and tells me reasons for living including "I have lots of grandkids they could keep me busy every day" and that "I enjoy life" and likes "getting together to play cards". Denies any pain or other issues. No evidence of side effects from the olanzapine. Physical Exam Psychiatric Orientation: alert and oriented to person; + not oriented to place and + not oriented to time Apperance: + disheveled Eye Contact: good eye contact Motor Behavior: no abnormal motor movements Speech: normal rate/rhythm/volume of speech Affect: euthymic affect Mood: no depressed mood, no anxious mood and no irritable mood Thought Process: + looseness of associations Thought Content: reality based without delusions Suicidal Thoughts: denies suicidal thoughts Homicidal Thoughts: denies homicidal thoughts Hallucinations: no auditory hallucinations and no visual hallucinations Cognition: + recent memory not intact, + remote memory not intact, + attention not intact and + language not intact Insight: + severely impaired insight Judgement: + severely impaired judgement Vital Signs (Past 24 Hours) Last Vital Signs Temp 36.8 C 10/19/22 09:49 Pulse 83 10/19/22 09:49 Resp 16 10/19/22 09:49 BP 116/65 10/19/22 09:49 Pulse Ox 94 10/19/22 09:49 O2 Del Method 10/19/22 09:49 Results & Data ([facility]) Current Inpatient Medications Current Inpatient Medications: Current Inpatient Medications Acetaminophen (Acetaminophen 325 Mg Tab) 650 mg PO Q4H PRN PRN Reason: pain/fever Stop: 11/09/22 19:34 Last Admin: 10/18/22 01:17 Dose: 650 mg Aspirin (Aspirin 81 Mg Ectab) 81 mg PO DAILY ARVIN Stop: 11/11/22 09:59 Last Admin: 10/19/22 09:16 Dose: 81 mg Donepezil HCl (Donepezil Hcl 5 Mg Tab) 5 mg PO HS ARVIN Stop: 11/11/22 20:59 Last Admin: 10/18/22 20:04 Dose: 5 mg Enoxaparin Sodium (Enoxaparin Inj 40 Mg/0.4 Ml Syr) 40 mg SQ QAM ARVIN Stop: 11/10/22 08:59 Last Admin: 10/19/22 09:16 Dose: 40 mg Olanzapine (Olanzapine 5 Mg Tablet) 5 mg PO HS ARVIN Stop: 11/12/22 20:59 Last Admin: 10/18/22 20:04 Dose: 5 mg Olanzapine (Olanzapine 10 Mg/2.1 Ml Sdv) 5 mg IM Q8 PRN PRN Reason: Agitation Stop: 11/09/22 19:34 Last Admin: 10/17/22 19:21 Dose: 5 mg Olanzapine (Olanzapine 5 Mg Tablet) 5 mg PO Q8H PRN PRN Reason: Agitation Stop: 11/12/22 15:44 Ondansetron HCl (Ondansetron Inj 2 Mg/Ml 2 Ml Vial) 4 mg IV Q6H PRN PRN Reason: Nausea Stop: 11/09/22 19:34 Polyethylene Glycol (Polyethylene (Miralax) 17 Gm Pack) 17 gm PO DAILY PRN PRN Reason: Constipation Stop: 11/09/22 19:34
--- NOTE | 2022-10-19 16:22 | Hospitalist Progress Note ---
Date of Service October 19, 2022 Assessment & Plan (1) Altered mental state: Plan: Altered mental status/Delirium -off and on Acute metabolic encephalopathy:UTI, CVA Presumed dementia Urine toxicology: Negative Brain imaging as below Normal B12, folate Appreciate psychiatry input and recommendation Likely unsafe for driving upon discharge Zyprexa PRN Remains agitated and has been trying to get out of the room Requiring one-to-one sitter We will continue Zyprexa as per psychiatric recommendation Remained calm and quiet this morning during examination but later on became very aggressive and combative CT of the head was ordered but was not performed due to combativeness-doubt any intracranial events with the trauma--- CT scan did not show any hemorrhage or any other acute events Will contact to the psychiatric service for further recommendation Remains confused and hallucinating at times Still requiring occasional doses of IM Zyprexa and/or Haldol Has been sleeping a lot throughout this morning but otherwise is stable hemodynamically Appreciate psychiatric reevaluation and the patient is of 302 now Likely has profound dementia with occasional delirium Will need medications to control periodic agitation as prescribed Awaiting placement Acute/Subacute CVA-POA --MRI Brain:4 mm focus of resected diffusion within the left frontal lobe centrum semiovale is suggestive of an acute or subacute lacunar infarct. In volutional changes with minimal chronic microvascular ischemic disease. --Carotid USD:There is no sonographic evidence of hemodynamically significant stenosis in the right or left carotid arterial system. Antegrade flow is shown in the vertebral arteries. --ECHO -qualitative EF 55% on limited transthoracic view, borderline concentric LVH and regional wall motion abnormalities cannot be excluded due to limited visualization --Lipid Panel-triglyceride on 65, cholesterol 196, LDL 117 and HDL 46 Start aspirin 81 mg daily Speech and swallow eval-she passed her dysphagia screen Neuro checks, Neurology consult-appreciate input and recommendation PT/OT -awaiting placement Urinary tract infection Blood cultures pending Urine culture growing E coli -pansensitive Continue Rocephin and subsequently finish the course of antibiotic No signs of sepsis Course of antibiotic is done Suicidal Ideation -no more suicidal ideation and the patient is taken off 302 status as of 10/19/2022 One-on-one precautions Appreciate Psychiatry Input Zyprexa as needed for agitation Has been agitated with a fall this afternoon Required 1 dose of IM Haldol We will continue with Zyprexa as for recommendation of the psychiatrist Requiring one-to-one sitter and at times the patient is very restless and combative Pharmacologic restraint has not been working and has been requiring physical restraint as well Occasional agitation and combativeness DVT Px: Lovenox SQ Code Status Full Code Family Contact Didi (Patient's daughter in law) [phone] Admission and Anticipated Discharge Date Admission Date: October 10, 2022 Subjective 10/13/2022 The patient was seen and examined in medical telemetry unit She has been very anxious, agitated and wandering around the room Trying to get out of the room Remains under one-to-one sitter 10/14/2022 The patient was seen and examined in medical telemetry unit Yesterday she banged her forehead on the door x2 and has black eye on the left side She was reasonably conversant this morning during my examination and denies any significant symptoms Later on she was noted to be very agitated and combative and required 1 dose of IM Zyprexa The nurse's trying to communicate with the psychiatric service to get more advice 10/15/2022 The patient was seen and examined in medical telemetry unit She has been stable this morning without any acute distress Not noted to be aggressive this morning 10/16/2022 The patient was seen and examined in medical telemetry unit She has been stable and is still requiring one-to-one sitter No more agitation and/or aggressiveness noted in last 24 hours 10/17/2022 The patient was seen and examined in medical telemetry unit She required IM dose of Zyprexa last night and Haldol this morning Still requiring one-to-one sitter Remains confused but not aggressive this morning during my examination 10/18/2022 The patient was seen and examined in medical telemetry unit She has been sleeping throughout the morning Has had breakfast and lunch and denies any significant symptoms during examination at around 350 PM 10/19/2022 The patient was seen and examined in medical telemetry unit She remains confused likely secondary to dementia as her baseline Appreciate psychiatric reevaluation The patient does not have any suicidal ideation May still need one-to-one sitter to prevent any injury Review of Systems Review of Systems: Unobtainable due to cognitive status Physical Exam Physical Exam: Sitting on a chair without any acute distress Constitutional: well developed and well nourished; not ill appearing Eyes: PERRL, conjunctivae normal, anicteric sclerae + eyelid abnormality (Black eye on the left side) ENMT: external ear and nose normal, oropharynx normal Neck: trachea midline, no thyromegaly Respiratory: no respiratory distress Auscultation: lungs clear to auscultation bilaterally Cardiovascular: Rate/Rhythm: regular rate and regular rhythm; not tachycardic Heart Sounds: normal S1 and normal S2; no murmur Extremities: no edema Gastrointestinal (Abdomen): Inspection/Auscultation: abdomen not distended Percussion/Palpation: abdomen soft; abdomen nontender Musculoskeletal: No acute arthritis involving any joint Psychiatric: Mood: + anxious mood Insight: + poor insight Lymphatic: no cervical or axillary lymphadenopathy Results & Data Results & Data ([facility]) Vital Signs (Past 12 Hours) Vital Signs Temp Pulse Pulse Resp BP Pulse Ox O2 Del Method 10/19/22 07:30 49 L 10/19/22 09:28 Room Air 10/19/22 09:49 36.8 C 83 16 116/65 94 Room Air 10/19/22 04:28 68 Medications Administered Current Inpatient Medications Acetaminophen (Acetaminophen 325 Mg Tab) 650 mg PO Q4H PRN PRN Reason: pain/fever Stop: 11/09/22 19:34 Last Admin: 10/18/22 01:17 Dose: 650 mg Aspirin (Aspirin 81 Mg Ectab) 81 mg PO DAILY ARVIN Stop: 11/11/22 09:59 Last Admin: 10/19/22 09:16 Dose: 81 mg Donepezil HCl (Donepezil Hcl 5 Mg Tab) 5 mg PO HS ARVIN Stop: 11/11/22 20:59 Last Admin: 10/18/22 20:04 Dose: 5 mg Enoxaparin Sodium (Enoxaparin Inj 40 Mg/0.4 Ml Syr) 40 mg SQ QAM ARVIN Stop: 11/10/22 08:59 Last Admin: 10/19/22 09:16 Dose: 40 mg Olanzapine (Olanzapine 5 Mg Tablet) 5 mg PO HS ARVIN Stop: 11/12/22 20:59 Last Admin: 10/18/22 20:04 Dose: 5 mg Olanzapine (Olanzapine 10 Mg/2.1 Ml Sdv) 5 mg IM Q8 PRN PRN Reason: Agitation Stop: 11/09/22 19:34 Last Admin: 10/17/22 19:21 Dose: 5 mg Olanzapine (Olanzapine 5 Mg Tablet) 5 mg PO Q8H PRN PRN Reason: Agitation Stop: 11/12/22 15:44 Ondansetron HCl (Ondansetron Inj 2 Mg/Ml 2 Ml Vial) 4 mg IV Q6H PRN PRN Reason: Nausea Stop: 11/09/22 19:34 Polyethylene Glycol (Polyethylene (Miralax) 17 Gm Pack) 17 gm PO DAILY PRN PRN Reason: Constipation Stop: 11/09/22 19:34
[2022-10-19] MEDS: OLANZapine 5 MG TABLET PO SCH (21:09)
[2022-10-19] MEDS: DONEPEZIL HCL 5 MG TAB PO SCH (21:09)
[2022-10-20] MEDS: ENOXAPARIN INJ 40 MG/0.4 ML SYR SQ SCH (07:39)
[2022-10-20] MEDS: ASPIRIN 81 MG ECTAB PO SCH (07:39)
--- NOTE | 2022-10-20 15:28 | Psychiatric Progress Note ---
Date of Service October 20, 2022 Impression / Recommendations Impression 77 yo female with no prior psych history, >1 year cognitive decline, found lost in car and brought to [facility] for assessment and found to have UTI. Diagnostically consistent with major neurocognitive disorder with superimposed delirium that continues to wax and wane. Given primary diagnoses of dementia and delirium and no psychiatric history she no longer meets 302 criteria (in the state of [place] dementia and delirium are not qualifiable diagnoses for involuntary psychiatric treatment) and there are no symptoms consistent with psychosis nor sultana nor SI nor depression nor sultana. Acute risk of self-harm is low given denial of SI, reasons for living and no depression. Chronic risk is moderate given impulsivity and disinhibition from dementia. 10/20/22: No agitation or behavioral events, overall trending toward improvement. Remains with severe memory challenges consistent with prior to admission cognitive decline. Given severe dementia she is not felt to have decision making capacity to leave AMA, family working on POA. Recommend secure memory care placement versus living environment with 24/7 family/care supervision versus alf placement. (1) Major neurocognitive disorder: (2) Delirium: (3) Dementia with behavioral disturbance: Plan -Does not have decision making capacity to leave AMA -1-on-1 as needed at discretion of hospitalist given dementia and history of wandering/confusion -Continue zyprexa 5mg po hs for dementia with behavioral disturbance and delirium -Continue with delirium prevention measures: raising blinds during the day, closing at night, contact with family/friends, explaining procedures/nursing care measures prior to physical contact, correct any hearing and visual impairments -For behavioral emergency: olanzapine 5 mg IM x 1 (DO NOT exceed 10mg per 24 hours, check EKG if IM dose required, NEVER co-administer with IM or IV benzodiazepines). -Recommend secure memory care placement vs with family with 24/7 supervision vs alf placement Interval History Identifying Information Alayna is a 77 yo female from [facility]) who was admitted to hospitalist service for AMS/UTI. Reportedly on 302 warrant as patient was unwilling to stay for treatment initially. Psychiatry consulted for recommendations. Chief Complaint "I've been sleeping all day". Subjective Subjective Patient was seen & assessed and interval progress reviewed. Continues to take all of her p.o. medications. No behavioral events overnight. Per discussion with patient in one-to-one in the room she slept most of the morning but was up and eating lunch at time of my assessment. Stated her mood was stable otherwise responded to most questions by stating "I do not know I have been sleeping all day". Denies any other questions or concerns very pleasant during interaction. Physical Exam Psychiatric Orientation: alert and oriented to person; + not oriented to place and + not oriented to time Apperance: appropriately dressed and appropriately groomed Eye Contact: good eye contact Motor Behavior: no abnormal motor movements Speech: normal rate/rhythm/volume of speech Affect: euthymic affect Mood: no depressed mood and no irritable mood Thought Process: + looseness of associations Thought Content: reality based without delusions Suicidal Thoughts: denies suicidal thoughts Homicidal Thoughts: denies homicidal thoughts Hallucinations: no auditory hallucinations and no visual hallucinations Cognition: + recent memory not intact, + remote memory not intact, + attention not intact and + language not intact Insight: + severely impaired insight Judgement: + severely impaired judgement Vital Signs (Past 24 Hours) Last Vital Signs Temp 36.5 C 10/20/22 07:32 Pulse 72 10/20/22 07:32 Resp 19 10/20/22 07:32 BP 130/74 10/20/22 07:32 Pulse Ox 94 10/20/22 07:32 O2 Del Method 10/20/22 07:32 Results & Data ([facility]) Current Inpatient Medications Current Inpatient Medications: Current Inpatient Medications Acetaminophen (Acetaminophen 325 Mg Tab) 650 mg PO Q4H PRN PRN Reason: pain/fever Stop: 11/09/22 19:34 Last Admin: 10/18/22 01:17 Dose: 650 mg Aspirin (Aspirin 81 Mg Ectab) 81 mg PO DAILY ARVIN Stop: 11/11/22 09:59 Last Admin: 10/20/22 07:39 Dose: 81 mg Donepezil HCl (Donepezil Hcl 5 Mg Tab) 5 mg PO HS ARVIN Stop: 11/11/22 20:59 Last Admin: 10/19/22 21:09 Dose: 5 mg Enoxaparin Sodium (Enoxaparin Inj 40 Mg/0.4 Ml Syr) 40 mg SQ QAM ARVIN Stop: 11/10/22 08:59 Last Admin: 10/20/22 07:39 Dose: 40 mg Olanzapine (Olanzapine 5 Mg Tablet) 5 mg PO HS ARVIN Stop: 11/12/22 20:59 Last Admin: 10/19/22 21:09 Dose: 5 mg Olanzapine (Olanzapine 10 Mg/2.1 Ml Sdv) 5 mg IM Q8 PRN PRN Reason: Agitation Stop: 11/09/22 19:34 Last Admin: 10/17/22 19:21 Dose: 5 mg Olanzapine (Olanzapine 5 Mg Tablet) 5 mg PO Q8H PRN PRN Reason: Agitation Stop: 11/12/22 15:44 Ondansetron HCl (Ondansetron Inj 2 Mg/Ml 2 Ml Vial) 4 mg IV Q6H PRN PRN Reason: Nausea Stop: 11/09/22 19:34 Polyethylene Glycol (Polyethylene (Miralax) 17 Gm Pack) 17 gm PO DAILY PRN PRN Reason: Constipation Stop: 11/09/22 19:34
--- NOTE | 2022-10-20 16:25 | Hospitalist Progress Note ---
Date of Service October 20, 2022 Assessment & Plan (1) Dementia with behavioral disturbance: Plan Altered mental status Likely acute metabolic encephalopathy secondary to UTI/CVA Presumed dementia Fluctuating delirium Admitting toxicology screen negative. Admitting CT head negative. 10/11 brain MRI with 4 mm focus of restricted diffusion within the left frontal lobe centrum semiovale suggestive of an acute or subacute lacunar infarct. Folate and vitamin B12 WNL. Psychiatry on board, Zyprexa as needed, better control of agitation or behavioral events. Patient with severe memory challenges consistent with cognitive decline. She is not felt to have decision-making capacity to leave AMA given severe dementia. Family working on POA. Recommend secure memory care placement. Zyprexa 5 Mg p.o. at bedtime for dementia with behavioral disturbance and delirium. CM working with placement, likely to dementia unit over the weekend. One-to-one sitter versus every 15 minutes check. Acute/subacute CVA, POA 10/11 brain MRI: See above Carotid US: No sonographic evidence of hemodynamically significant stenosis in the right or left carotid arterial system. Echo: EF 55%, borderline concentric LVH, regional wall motion abnormalities cannot be excluded due to limited visualization Started on aspirin 81 Mg daily, speech/swallow eval done and passed dysphagia screen. Neurology evaluated, appreciate recommendation PT/OT, awaiting placement. Urinary tract infection: Urine culture grew E. coli pansensitive, status post antibiotic course. Suicidal ideation: No more with suicidal ideation, patient taken off of 302 status as of 10/19/2022. One-to-one precaution versus every 15 minute checks. Psychiatry on board, appreciate recommendation. DVT prophylaxis: Lovenox subcu CODE STATUS: Full code Family contact: Didi (Patient's daughter in law)[phone] Dispo: awaiting placement, CM working on memory unit. Admission and Anticipated Discharge Date Admission Date: October 10, 2022 Subjective Patient seen and examined at bedside as a follow-up of altered mental status/on and off delirium/acute metabolic encephalopathy/UTI/CVA. Patient was lying in bed, on room air, NAD, oriented to self, denies any discomfort or pain, ROS n/a due to cognition status. Patient ate her breakfast per sitter. Physical Exam Physical Exam: GENERAL: Alert and oriented x self. NAD, on RA. HEENT: No pallor, no icterus. Pupils equal, round and reactive to light. Oral mucosa moist. NECK: No JVD, no neck masses. HEART: S1 and S2 heard. Regular rate and rhythm. No murmur, no gallop. RESPIRATORY SYSTEM: Normal AP diameter. No accessory muscle use. No wheezing, no crackles. ABDOMEN: Soft, bowel sounds present, nontender, no distention. CENTRAL NERVOUS SYSTEM: No facial droop. Speech is clear. Obeys simple commands. Moves extremities. EXTREMITIES: No edema, no erythema seen. Results & Data Results & Data ([facility]) Vital Signs (Past 12 Hours) Vital Signs Temp Pulse Resp BP Pulse Ox O2 Del Method 10/20/22 07:32 36.5 C 72 19 130/74 94 Room Air
[2022-10-20] MEDS: OLANZapine 5 MG TABLET PO SCH (20:22)
[2022-10-20] MEDS: OLANZapine 10 MG/2.1 ML SDV IM PRN (20:45)
[2022-10-20] MEDS: DONEPEZIL HCL 5 MG TAB PO SCH (20:58)
[2022-10-21 08:19] LABS: Hematocrit (blood only) 44.6 % (34.1-44.9); Mean Corpuscular Hgb Conc 33.6 g/dL (32.0-36.0); Mean Corpuscular Volume 89.2 fL (80.0-100.0); Mean Platelet Volume 10.3 fL (9.4-12.3); Platelet Count 253 K/uL (130-400); RDW Coefficient of Variation 13.3 % (11.5-14.5); RDW Standard Deviation 43.7 fL (36.4-46.3); White Blood Count 9.45 K/ul (4.8-10.8)
[2022-10-21 08:42] LABS: Calcium 9.3 mg/dl (8.5-10.1); Creatinine Clr Calc Pharmacy 56.9 ml/min; Est GFR (African American) 83.6 ml/min; Est GFR (Non-African American) 72.1 ml/min; Magnesium 2.2 mg/dl (1.7-2.4); Phosphorus 3.2 mg/dl (2.5-4.9); Potassium 4.1 mmol/L (3.5-5.1)
[2022-10-21] MEDS: ASPIRIN 81 MG ECTAB PO SCH (09:26)
[2022-10-21] MEDS: ENOXAPARIN INJ 40 MG/0.4 ML SYR SQ SCH (09:26)
[2022-10-21 12:17] VITALS: O2SAT 95
[2022-10-21 15:32] VITALS: TEMP 99.5
--- NOTE | 2022-10-21 16:35 | Hospitalist Progress Note ---
Date of Service October 21, 2022 Assessment & Plan (1) Dementia with behavioral disturbance: Plan Altered mental status Likely acute metabolic encephalopathy secondary to UTI/CVA Presumed dementia Fluctuating delirium Admitting toxicology screen negative. Admitting CT head negative. 10/11 brain MRI with 4 mm focus of restricted diffusion within the left frontal lobe centrum semiovale suggestive of an acute or subacute lacunar infarct. Folate and vitamin B12 WNL. Psychiatry on board, Zyprexa as needed, better control of agitation or behavioral events. Patient with severe memory challenges consistent with cognitive decline. She is not felt to have decision-making capacity to leave AMA given severe dementia. Family working on POA. Recommend secure memory care placement. Zyprexa 5 Mg p.o. at bedtime for dementia with behavioral disturbance and delirium. CM working with placement, likely to dementia unit over the weekend. One-to-one sitter versus every 15 minutes check. Acute/subacute CVA, POA 10/11 brain MRI: See above Carotid US: No sonographic evidence of hemodynamically significant stenosis in the right or left carotid arterial system. Echo: EF 55%, borderline concentric LVH, regional wall motion abnormalities cannot be excluded due to limited visualization Started on aspirin 81 Mg daily, speech/swallow eval done and passed dysphagia screen. Neurology evaluated, appreciate recommendation PT/OT, awaiting placement. Urinary tract infection: Urine culture grew E. coli pansensitive, status post antibiotic course. Suicidal ideation: No more with suicidal ideation, patient taken off of 302 status as of 10/19/2022. One-to-one precaution versus every 15 minute checks. Psychiatry on board, appreciate recommendation. DVT prophylaxis: Lovenox subcu CODE STATUS: Full code Family contact: Didi (Patient's daughter in law)[phone] Dispo: awaiting placement, CM working on memory unit. Admission and Anticipated Discharge Date Admission Date: October 10, 2022 Subjective Patient seen and examined at bedside as a follow-up of altered mental status/on and off delirium/acute metabolic encephalopathy/UTI/CVA. Patient was lying in bed, on room air, NAD, oriented to self, denies any discomfort or pain, ROS n/a due to cognition status. Patient ate her breakfast per sitter. Physical Exam Physical Exam: GENERAL: Alert and oriented x self. NAD, on RA. HEENT: No pallor, no icterus. Pupils equal, round and reactive to light. Oral mucosa moist. NECK: No JVD, no neck masses. HEART: S1 and S2 heard. Regular rate and rhythm. No murmur, no gallop. RESPIRATORY SYSTEM: Normal AP diameter. No accessory muscle use. No wheezing, no crackles. ABDOMEN: Soft, bowel sounds present, nontender, no distention. CENTRAL NERVOUS SYSTEM: No facial droop. Speech is clear. Obeys simple commands. Moves extremities. EXTREMITIES: No edema, no erythema seen. Results & Data Results & Data ([facility]) Vital Signs (Past 12 Hours) Vital Signs Temp Pulse Resp BP Pulse Ox O2 Del Method 10/21/22 15:31 37.5 C 86 18 159/84 H 95 Room Air 10/21/22 12:17 36.5 C 68 16 111/68 95 Room Air
[2022-10-21] MEDS: OLANZapine 5 MG TABLET PO SCH (20:03)
[2022-10-21] MEDS: DONEPEZIL HCL 5 MG TAB PO SCH (20:03)
[2022-10-22] MEDS: ASPIRIN 81 MG ECTAB PO SCH (08:51)
[2022-10-22] MEDS: ENOXAPARIN INJ 40 MG/0.4 ML SYR SQ SCH (08:51)
[2022-10-22] MEDS: ACETAMINOPHEN 325 MG TAB PO PRN ×2 (15:02→20:25)
--- NOTE | 2022-10-22 15:15 | Hospitalist Progress Note ---
Date of Service October 22, 2022 Assessment & Plan (1) Dementia with behavioral disturbance: Plan Altered mental status Likely acute metabolic encephalopathy secondary to UTI/CVA Presumed dementia Fluctuating delirium Admitting toxicology screen negative. Admitting CT head negative. 10/11 brain MRI with 4 mm focus of restricted diffusion within the left frontal lobe centrum semiovale suggestive of an acute or subacute lacunar infarct. Folate and vitamin B12 WNL. Psychiatry on board, Zyprexa as needed, better control of agitation or behavioral events. Patient with severe memory challenges consistent with cognitive decline. She is not felt to have decision-making capacity to leave AMA given severe dementia. Family working on POA. Recommend secure memory care placement. Zyprexa 5 Mg p.o. at bedtime for dementia with behavioral disturbance and delirium. CM working with placement, likely to dementia unit over the weekend. One-to-one sitter versus every 15 minutes check. Acute/subacute CVA, POA 10/11 brain MRI: See above Carotid US: No sonographic evidence of hemodynamically significant stenosis in the right or left carotid arterial system. Echo: EF 55%, borderline concentric LVH, regional wall motion abnormalities cannot be excluded due to limited visualization Started on aspirin 81 Mg daily, speech/swallow eval done and passed dysphagia screen. Neurology evaluated, appreciate recommendation PT/OT, awaiting placement. Urinary tract infection: Urine culture grew E. coli pansensitive, status post antibiotic course. Suicidal ideation: No more with suicidal ideation, patient taken off of 302 status as of 10/19/2022. One-to-one precaution versus every 15 minute checks. Psychiatry on board, appreciate recommendation. DVT prophylaxis: Lovenox subcu CODE STATUS: Full code Family contact: Didi (Patient's daughter in law)[phone] Dispo: awaiting placement, CM working on memory unit. Likely ginger, will likely need premedication with po zyprexa prior to DC ginger. Admission and Anticipated Discharge Date Admission Date: October 10, 2022 Subjective Patient seen and examined at bedside as a follow-up of altered mental status/on and off delirium/acute metabolic encephalopathy/UTI/CVA. Patient was sitting up in chair at door, on room air, NAD, oriented to self, denies any discomfort or pain, ROS n/a due to cognition status. Patient ate her breakfast per sitter. Physical Exam Physical Exam: GENERAL: Alert and oriented x self. NAD, on RA. HEENT: No pallor, no icterus. Pupils equal, round and reactive to light. Oral mucosa moist. NECK: No JVD, no neck masses. HEART: S1 and S2 heard. Regular rate and rhythm. No murmur, no gallop. RESPIRATORY SYSTEM: Normal AP diameter. No accessory muscle use. No wheezing, no crackles. ABDOMEN: Soft, bowel sounds present, nontender, no distention. CENTRAL NERVOUS SYSTEM: No facial droop. Speech is clear. Obeys simple commands. Moves extremities. EXTREMITIES: No edema, no erythema seen.
--- NOTE | 2022-10-22 15:41 | Communication Note ---
Date of Service: October 22, 2022 Alayna has been doing well and will be leaving with family tomorrow and driving with them back to [place] where she has been accepted to a secure memory care facility. This transition tomorrow is likely to be somewhat stressful given her level of cognitive decline and may induce some worsening of confusion and possible behavioral disturbance so family wondered about medication options to help with this travel day. Tomorrow could consider giving her an additional dose of zyprexa 5mg po x1 about 30minutes prior to getting into the car with family.
[2022-10-22] MEDS: OLANZapine 5 MG TABLET PO SCH (20:26)
[2022-10-22] MEDS: DONEPEZIL HCL 5 MG TAB PO SCH (20:26)
--- NOTE | 2022-10-23 10:40 | Discharge Summary ---
Date of Service October 23, 2022 Admission HPI Per Admitting Provider Patient is a 77-year-old female with no significant known medical history presents with history of altered mental status. Patient is currently confused and unable to provide much history. Most of the history is obtained from ER staff, patient's significant other at bedside. Old records currently unavailable. Apparently, patient's significant other went to jainism this morning and when he returned, he noted that patient left the house. When called, she informed that she was driving to her son's place in [place]. Patient's significant other informed that had a vehicle [employer] that he has been using to track her as she been having memory issues since last 1 and half years. State police were informed and patient was found walking on highway in [place]. Currently patient is oriented to person but otherwise disoriented. She has been having hallucinations and her mental status deteriorated especially over the past 5 days. She also was noted to have made statements suggestive of being suicidal. Per significant other, about 2 to 3 days ago patient stated " if I know how to use again, I would kill myself". Patient's son was contacted and he was unaware that her mother was traveling to visit him. Patient has been canceling her neurology appointments as per family, as she believes she has no issues. Blood work suggestive of UTI. Review of systems could not be obtained currently Admission Exam Per Admitting Provider Vitals signs as noted above General Appearance:Moderately built and nourished, no apparent distress Head: normocephalic, Atraumatic Eyes: normal inspection, EOMI Neck: supple, Trachea midline Respiratory/Chest: Normal breath sounds, CTA, No accessory muscle use Cardiovascular: S1, S2, No murmur Abdomen/GI:Soft, Non tender, Bowel sounds present Extremities/Musculoskelatal:normal inspection, no edema Neurologic/Psych:AAOX1, grossly no focal neurological deficits, confused Skin: normal color, warm Principal Diagnosis Altered mental status Likely acute metabolic encephalopathy secondary to UTI/CVA Presumed dementia Fluctuating delirium Acute/subacute CVA Discharge Exam GENERAL: sleepy. NAD, on RA. HEENT: No pallor, no icterus. Pupils equal, round and reactive to light. Oral mucosa moist. NECK: No JVD, no neck masses. HEART: S1 and S2 heard. Regular rate and rhythm. No murmur, no gallop. RESPIRATORY SYSTEM: Normal AP diameter. No accessory muscle use. No wheezing, no crackles. ABDOMEN: Soft, bowel sounds present, nontender, no distention. CENTRAL NERVOUS SYSTEM: No facial droop. Speech is clear. Obeys simple commands. Moves extremities. EXTREMITIES: No edema, no erythema seen. Discharge Data Allergies Allergy/AdvReac Type Severity Reaction Status Date / Time Unable to Assess Allergy Unverified 10/10/22 18:06 Consultations 10/10/22 17:18 ED Decision to Admit Stat 10/10/22 17:40 Consult Psychiatry Routine 10/12/22 09:48 Consult Neurology Routine Ordered Studies 10/10/22 13:53 CT head/brain wo con Stat 10/11/22 16:14 MR brain wo/w con Routine 10/12/22 09:53 US carotid doppler BI Routine 10/14/22 10:05 CT head/brain wo con Urgent Hospital Course (1) Dementia with behavioral disturbance: Plan 77 yo F was managed for the following: Altered mental status Likely acute metabolic encephalopathy secondary to UTI/CVA Presumed dementia Fluctuating delirium Admitting toxicology screen negative. Admitting CT head negative. 10/11 brain MRI with 4 mm focus of restricted diffusion within the left frontal lobe centrum semiovale suggestive of an acute or subacute lacunar infarct. Folate and vitamin B12 WNL. Psychiatry on board, Zyprexa as needed, better control of agitation or behavioral events. Patient with severe memory challenges consistent with cognitive decline. She is not felt to have decision-making capacity to leave AMA given severe dementia. Family working on POA. Recommend secure memory care placement. Zyprexa 5 Mg p.o. at bedtime for dementia with behavioral disturbance and delirium. Prn Prn zyprexa for behavioral emergency. f/u w/ pcp and psychiatry as OP. Acute/subacute CVA, POA 10/11 brain MRI: See above Carotid US: No sonographic evidence of hemodynamically significant stenosis in the right or left carotid arterial system. Echo: EF 55%, borderline concentric LVH, regional wall motion abnormalities cannot be excluded due to limited visualization Started on aspirin 81 Mg daily, speech/swallow eval done and passed dysphagia screen. Neurology evaluated, appreciate recommendation PT/OT, awaiting placement. Urinary tract infection: Urine culture grew E. coli pansensitive, status post antibiotic course. Suicidal ideation: No more with suicidal ideation, patient taken off of 302 status as of 10/19/2022. One-to-one precaution versus every 15 minute checks. Psychiatry on board, appreciate recommendation. DVT prophylaxis: Lovenox subcu CODE STATUS: Full code Family contact: Didi (Patient's daughter in law)[phone] Dispo: awaiting placement, CM working on memory unit. Likely ginger, will likely need premedication with po zyprexa prior to DC ginger. RN communicated to give one-time dose of 5 mg p.o. Zyprexa half an hour prior to discharge. Patient being discharged to secure memory care facility with following instruction at the point of discharge: Follow-up with primary care physician within 1 week time. Follow-up with your psychiatry as an outpatient. Take your medications as prescribed. Home Health Attestation I certify that this patient is under my care and that I, or a physicians underwriting assistant working with me, had a face to-face encounter that meets the home health [id number] encounter requirements with this patient. The encounter with the patient was in whole, or in part, for the following medical condition, which is the primary reason for home health care (list medical condition): I certify that, based on my findings, the following services are medically necessary home health services: My clinical findings support the need for the above services because: Further, I certify that my clinical findings support that this patient is homebound (i.e. absences from home require considerable and taxing effort and are for medical reasons or spiritism services or infrequently or of short duration when for other reasons) because: Certification for Home Health Services: Based on the above findings, I certify that this patient is confined to the home and needs intermittent mcc care, physical therapy and/or speech therapy or continues to need occupational therapy. The patient is under my care, and I have initiated the establishment of the plan of care. This patient will be followed by a physician who will periodically review the plan of care. Total Time Total Time Spent Total Time Spent (In Minutes): 35 Discharge Plan Discharge Items Patient Disposition: Transfer Behavioral Health Fac Reason For Visit: ALTERED MENTAL STATUS Discharge Diagnosis: Altered mental status Likely acute metabolic encephalopathy secondary to UTI/CVA Presumed dementia Fluctuating delirium Acute/subacute CVA Activity: Resume your previous activity Non-emergency contact: Primary Care Provider Call non-emergency contact if: you have any medication questions Follow-up/Referrals: PCP,NO [Primary Care Provider] - Diet: Regular Addtl Attending Provider Instructions: Follow-up with primary care physician within 1 week time. Follow-up with your psychiatry as an outpatient. Take your medications as prescribed. Pending Studies at Discharge: No Stand-Alone Forms: My [facility] Medications and DC Order Prescriptions: New donepezil 5 mg Tablet 5 mg PO HS Qty: 30 0RF acetaminophen 325 mg Tablet 650 mg PO Q8H PRN (Reason: fever or pain) Qty: 60 0RF aspirin 81 mg Tablet,Delayed Release (Dr/Ec) 81 mg PO DAILY Qty: 30 0RF olanzapine 5 mg Tablet 5 mg PO Q12H PRN (Reason: agitation) Qty: 30 0RF olanzapine 5 mg Tablet 5 mg PO HS Qty: 30 0RF Discharge Orders: Discharge Order (Routine); Ordered 10/23/22 Ordered By: Brando Davies Admission Data Admit Date/Time: 10/10/22 17:48 Attending Provider: Brando Davies Admit Provider: Chepe Riley Primary Care Provider: SHAUNA,TINA Other Providers: Chepe Riley ; Georgiana Boyle ; Amanda De Anda ; Shirley Thomas ; Edison Vu
[2022-10-23 10:43] VITALS: BP 102/66; PULSE 88
[2022-10-23] MEDS: ASPIRIN 81 MG ECTAB PO SCH (10:50)
[2022-10-23] MEDS: ENOXAPARIN INJ 40 MG/0.4 ML SYR SQ SCH (10:50)
== END 2022-10-23 11:25 | DRG 64 ==
LOC: ED 13:18 → SUATTDRO 17:48 → 2W 17:48